=== PATIENT | female | born 1965 | race Caucasian/White ===

== ENCOUNTER 2018-01-15 21:40 | Inpatient (IN) | payer BC ==
[2018-01-15] MEDS ORDERED: Sodium Chloride 0.9% 5 ML Syringe FLUSH PRN ×2 (21:46→22:53)
[2018-01-15] MEDS ORDERED: Albuterol/Ipratropium 3.0-0.5 MG/3 ML Neb Soln NEB ONE (21:46)
[2018-01-15] MEDS ORDERED: Acetaminophen 500 MG Tab ONE (21:50)
[2018-01-15] MEDS ORDERED: Acetaminophen 500 MG Tab PO ONE (21:51)
--- NOTE | 2018-01-15 21:51 | EDM.PDOC ---
ED HPI GENERAL MEDICAL PROBLEM - General Chief Complaint: General Stated Complaint: ABDOMINAL PAIN Time Seen by Provider: 01/15/18 21:40 Source of Information: Reports: Patient, EMS History Limitations: Reports: No Limitations - History of Present Illness INITIAL COMMENTS - FREE TEXT/NARRATIVE: 52 YO WF presents to ER complaining of 4 day history of progressive shortness of breath and upper respiratory illness. Pt is O2 dependent uses 3L at home. Pt reports today she started to develop dysuria followed by abdominal pain with radiation to her back prompting call to EMS. Pt was found to have SaO2 80% on 3L. Pt was placed on NRB and transferred to ER. Pt has terminal colon/anal cancer. Pt is currently on hospice care. Pt with documented fever 101.3 tonight in ER. Pt denies any chest pain or vomiting. Onset Date: 01/12/18 Duration: Day(s): (4) Location: Reports: Generalized Severity: Mild Improves with: Reports: None Worsens with: Reports: Movement Context: Reports: Sick Contact Associated Symptoms: Reports: Diaphoresis, Fever/Chills, Shortness of Breath. Denies: Confusion, Chest Pain, Cough, cough w sputum, Headaches, Malaise, Nausea /Vomiting, Seizure, Syncope, Weakness Lower Abdomen Pain Score (Numeric/FACES): 3 - Related Data Allergies Allergy/AdvReac Type Severity Reaction Status Date / Time codeine Allergy Anaphylactic Verified 01/15/18 21:47 Shock morphine Allergy Anaphylactic Verified 01/15/18 21:47 Shock Home Meds: Home Meds Acetaminophen 2 tab PO Q4HR PRN 03/06/17 [History] Citalopram [Celexa] 1.5 tab PO DAILY 03/06/17 [History] Furosemide [Lasix] 20 mg PO DAILY 03/06/17 [History] LORazepam [Ativan] 1 tab PO QID PRN 03/06/17 [History] Lactulose 30 ml PO DAILY PRN 03/06/17 [History] Lidocaine 5% 45 g TOP QID 03/06/17 [History] Lidocaine/Prilocaine [EMLA Crm] 1 applic TOP ASDIRECTED PRN 03/06/17 [History] OLANZapine [ZyPREXA] 5 mg PO DAILY 03/06/17 [History] Ondansetron [Zofran ODT] 8 mg PO TID PRN 03/06/17 [History] buPROPion HCl [Zyban] 1 tab PO BID 03/06/17 [History] CISplatin 171 mg IV ASDIRECTED 06/10/17 [History] Dexamethasone 4 mg PO ASDIRECTED 06/10/17 [History] Fluorouracil 10,000 mg IV ASDIRECTED 06/10/17 [History] HYDROmorphone [Dilaudid] 2 mg PO Q4H PRN 06/10/17 [History] Potassium Chloride [Klor-Con M20] 20 meq PO BID 06/10/17 [History] Past Medical History Cardiovascular History: Reports: Hypertension Gastrointestinal History: Reports: Other (See Below) Other Gastrointestinal History: rectal mass Genitourinary History: Reports: Hydronephrosis [employer] History: Reports: Psychiatric History: Reports: Anxiety, Depression Hematologic History: Reports: Anemia Oncologic (Cancer) History: Reports: Other (See Below) Other Oncologic History: anal - Past Surgical History GI Surgical History: Reports: Cholecystectomy Female Surgical History: Reports: Cystoscopy Other Female Surgeries/Procedures: left stent placement and removal. Social & Family History - Family History Cardiac: Reports: CAD Respiratory: Reports: Sleep Apnea Oncologic: Reports: Thyroid ED ROS GENERAL - Review of Systems Review Of Systems: See Below Constitutional: Reports: Fever, Chills, Fatigue, Decreased Appetite HEENT: Reports: Rhinitis Respiratory: Reports: Shortness of Breath, Wheezing Cardiovascular: Reports: No Symptoms Endocrine: Reports: No Symptoms GI/Abdominal: Reports: Abdominal Pain : Reports: Dysuria, Flank Pain, Frequency Musculoskeletal: Reports: No Symptoms Skin: Reports: No Symptoms Neurological: Reports: No Symptoms Psychiatric: Reports: No Symptoms Hematologic/Lymphatic: Reports: No Symptoms Immunologic: Reports: No Symptoms ED EXAM, GENERAL - Physical Exam Exam: See Below Exam Limited By: No Limitations General Appearance: Alert, WD/WN, No Apparent Distress Eye Exam: Bilateral Eye: PERRL Nose: Normal Inspection, Normal Mucosa, No Blood Throat/Mouth: Normal Inspection, Normal Lips, Normal Teeth, Normal Gums, Normal Oropharynx, Normal Voice, No Airway Compromise Head: Atraumatic, Normocephalic Neck: Normal Inspection, Supple, Non-Tender, Full Range of Motion Respiratory/Chest: No Accessory Muscle Use, Chest Non-Tender, Wheezing, Accessory Muscle Use. No: Lungs Clear, Normal Breath Sounds Cardiovascular: Normal Peripheral Pulses, Regular Rate, Rhythm, No Edema, No Gallop, No JVD, No Murmur, No Rub GI/Abdominal: Normal Bowel Sounds, Soft, Non-Tender, No Organomegaly, No Distention, No Abnormal Bruit, No Mass Back Exam: CVA Tenderness (L), CVA Tenderness (R) Extremities: Normal Inspection, Normal Range of Motion, Non-Tender, Normal Capillary Refill, No Pedal Edema Neurological: Alert, Oriented, CN II-XII Intact, Normal Cognition, Normal Gait, Normal Reflexes, No Motor/Sensory Deficits Psychiatric: Normal Affect, Normal Mood Skin Exam: Warm, Dry, Intact, Normal Color, No Rash Lymphatic: No Adenopathy Course - Vital Signs Last Recorded V/S: Last Vital Signs Temp 37.9 C 01/15/18 22:20 Pulse 130 H 01/15/18 21:50 Resp 24 H 01/15/18 21:48 BP 143/87 H 01/15/18 21:48 Pulse Ox 94 L 01/15/18 21:50 - Orders/Labs/Meds Orders: Active Orders 24 hr Category Date Time Status Peripheral IV Care [RC] . DIRECTED Care 01/15/18 21:47 Active RT Aerosol Therapy [RC] ASDIRECTED Care 01/15/18 21:47 Active Chest 1V Frontal [CR] Stat Exams 01/15/18 21:46 Taken CULTURE BLOOD [BC] Stat Lab 01/15/18 21:51 Ordered CULTURE BLOOD [BC] Stat Lab 01/15/18 22:00 Received UA W/MICROSCOPIC [URIN] Stat Lab 01/15/18 22:26 Ordered UA W/MICROSCOPIC [URIN] Stat Lab 01/15/18 22:26 Ordered Piperacillin/Tazobactam [Zosyn] 4.5 gm Med 01/15/18 22:45 Ordered Sodium Chloride 0.9% [Normal Saline] 100 ml IV Q6H Sodium Chloride 0.9% [Normal Saline] 1,000 ml Med 01/15/18 21:58 Active IV .BOLUS Sodium Chloride 0.9% [Syrex Flush] Med 01/15/18 21:46 Active 5 ml FLUSH Q8HR PRN Vancomycin 1 gm Med 01/15/18 22:45 Ordered Sodium Chloride 0.9% [Normal Saline] 250 ml IV Q24H Blood Culture x2 Reflex Set [OM.PC] Stat Oth 01/15/18 21:51 Ordered Peripheral IV Insertion Adult [OM.PC] Routine Oth 01/15/18 21:46 Ordered Medication Orders Sodium Chloride (Normal Saline) 1,000 mls @ 999 mls/hr IV .BOLUS ONE Stop: 01/15/18 22:58 Piperacillin Sod/Tazobactam (Sod 4.5 gm/ Sodium Chloride) 100 mls @ 200 mls/hr IV Q6H ANGELA Vancomycin HCl 1 gm/ Sodium (Chloride) 250 mls @ 167 mls/hr IV Q24H ANGELA Sodium Chloride (Syrex Flush) 5 ml FLUSH Q8HR PRN PRN Reason: Keep Vein Open Labs: Laboratory Tests 01/15/18 01/15/18 01/15/18 Range/Units 22:00 22:00 22:26 WBC 39.8 H* D (5.0-10.0) 10^3/uL RBC 2.98 L (3.80-5.50) 10^6/uL Hgb 10.3 L D (12.0-16.0) g/dL Hct 31.2 L (37.0-47.0) % MCV 104.7 H D (82.0-92.0) fL MCH 34.7 H (27.0-31.0) pg MCHC 33.1 (32.0-36.0) g/dL RDW 18.2 H (11.5-14.5) % Plt Count 180 D (150-300) 10^3/uL MPV 7.1 L (7.4-10.4) fL Neut % (Auto) 97.0 H (50.0-70.0) % Lymph % (Auto) 2.4 L (20.0-40.0) % [place] % (Auto) 0.2 L (2.0-8.0) % Eos % (Auto) 0.4 L (1.0-3.0) % Baso % (Auto) 0.0 (0.0-1.0) % Neut # (Auto) 38.5 H (2.5-7.0) 10^3/uL Lymph # (Auto) 1.0 (1.0-4.0) 10^3/uL [place] # (Auto) 0.1 (0.1-0.8) 10^3/uL Eos # (Auto) 0.2 (0.1-0.3) 10^3/uL Baso # (Auto) 0.0 (0.0-0.1) 10^3/uL Sodium 138 (136-145) mmol/L Potassium 4.7 D (3.3-5.3) mmol/L Chloride 103 (98-115) mmol/L Carbon Dioxide 14.2 L (21.0-32.0) mmol/L BUN 82 H* D (6-25) mg/dL Creatinine 1.71 H (0.51-1.17) mg/dL Est Cr Clr Drug Dosing 36.03 mL/min Estimated GFR (MDRD) 31 mL/min Glucose 125 H (70-110) mg/dL Calcium 9.3 D (8.7-10.3) mg/dL Total Bilirubin 1.2 H (0.2-1.0) mg/dL AST 83 H (15-37) U/L ALT 149 H (12-78) U/L Alkaline Phosphatase 328 H (46-116) IU/L Total Protein 7.4 (6.4-8.2) g/dL Albumin 3.62 (3.00-4.80) g/dL Urine Color Yellow (YELLOW) Urine Appearance Clear (CLEAR) Urine pH 5.0 (5.0-9.0) Ur Specific [place] 1.020 (1.005-1.030) Urine Protein 100 H (NEGATIVE) mg/dL Urine Glucose (UA) Negative (NEGATIVE) mg/dL Urine Ketones Negative (NEGATIVE) mg/dL Urine Occult Blood Moderate H (NEGATIVE) Urine Nitrite Negative (NEGATIVE) Urine Bilirubin Negative (NEGATIVE) Urine Urobilinogen 1.0 (0.2-1.0) E.U./dL Ur Leukocyte Esterase Trace H (NEGATIVE) Meds: Medications Generic Name Dose Route Start Last Admin Trade Name Freq PRN Reason Stop Dose Admin Sodium Chloride 1,000 mls @ 999 mls/hr 01/15/18 21:58 Normal Saline IV 01/15/18 22:58 .BOLUS ONE Piperacillin Sod/Tazobactam 100 mls @ 200 mls/hr 01/15/18 22:45 Sod 4.5 gm/ Sodium Chloride IV Q6H AGNELA Vancomycin HCl 1 gm/ Sodium 250 mls @ 167 mls/hr 01/15/18 22:45 Chloride IV Q24H ANGELA Sodium Chloride 5 ml 01/15/18 21:46 Syrex Flush FLUSH Q8HR PRN Keep Vein Open Discontinued Medications Generic Name Dose Route Start Last Admin Trade Name Freq PRN Reason Stop Dose Admin Acetaminophen 1,000 mg 01/15/18 21:51 01/15/18 21:50 Tylenol Extra Strength PO 01/15/18 21:52 1,000 mg ONETIME ONE Administration Acetaminophen Confirm 01/15/18 21:50 01/15/18 22:01 Tylenol Extra Strength Administered 01/15/18 21:51 Not Given Dose 1,000 mg .ROUTE .STK-MED ONE Albuterol/Ipratropium 3 ml 01/15/18 21:46 01/15/18 21:50 Duoneb 3.0-0.5 Mg/3 Ml NEB 01/15/18 21:47 3 ml ONETIME ONE Administration - Radiology Interpretation Free Text/Narrative:: CXR- bilateral bibasilar pneumonia Departure - Departure Time of Disposition: 22:51 Disposition: Admitted As Inpatient 66 Condition: Critical Clinical Impression: Hypoxemia, Dehydration, Anal cancer Pneumonia Qualifiers: Pneumonia type: due to unspecified organism Laterality: bilateral Lung location : lower lobe of lung Qualified Code(s): J18.1 - Lobar pneumonia, unspecified organism - Discharge Information Referrals: PCP,Not In Area [Ordering Only Provider] - Forms: ED Department Discharge - My Orders Last 24 Hours: My Active Orders 01/15/18 21:46 Chest 1V Frontal [CR] Stat Sodium Chloride 0.9% [Syrex Flush] 5 ml FLUSH Q8HR PRN Peripheral IV Insertion Adult [OM.PC] Routine 01/15/18 21:47 Peripheral IV Care [RC] . DIRECTED RT Aerosol Therapy [RC] ASDIRECTED 01/15/18 21:51 CULTURE BLOOD [BC] Stat Blood Culture x2 Reflex Set [OM.PC] Stat 01/15/18 21:58 Sodium Chloride 0.9% [Normal Saline] 1,000 ml IV .BOLUS 01/15/18 22:00 CULTURE BLOOD [BC] Stat 01/15/18 22:26 UA W/MICROSCOPIC [URIN] Stat UA W/MICROSCOPIC [URIN] Stat 01/15/18 22:45 Piperacillin/Tazobactam [Zosyn] 4.5 gm Sodium Chloride 0.9% [Normal Saline] 100 ml IV Q6H Vancomycin 1 gm Sodium Chloride 0.9% [Normal Saline] 250 ml IV Q24H - Assessment/Plan Last 24 Hours: My Active Orders 01/15/18 21:46 Chest 1V Frontal [CR] Stat Sodium Chloride 0.9% [Syrex Flush] 5 ml FLUSH Q8HR PRN Peripheral IV Insertion Adult [OM.PC] Routine 01/15/18 21:47 Peripheral IV Care [RC] . DIRECTED RT Aerosol Therapy [RC] ASDIRECTED 01/15/18 21:51 CULTURE BLOOD [BC] Stat Blood Culture x2 Reflex Set [OM.PC] Stat 01/15/18 21:58 Sodium Chloride 0.9% [Normal Saline] 1,000 ml IV .BOLUS 01/15/18 22:00 CULTURE BLOOD [BC] Stat 01/15/18 22:26 UA W/MICROSCOPIC [URIN] Stat UA W/MICROSCOPIC [URIN] Stat 01/15/18 22:45 Piperacillin/Tazobactam [Zosyn] 4.5 gm Sodium Chloride 0.9% [Normal Saline] 100 ml IV Q6H Vancomycin 1 gm Sodium Chloride 0.9% [Normal Saline] 250 ml IV Q24H Assessment:: 1. Hypoxemia 2. Bibasilar pneumonia 3. leukocytosis 4. anal CA with metastasis 5. revoked hospice care and is a full code at this time Plan: 1. admit- [facility] 2. zosyn/vanco 3. IVF 4. duoneb Q4 5. oxygen NRB 6. supportive care
[2018-01-15] MEDS ORDERED: Sodium Chloride 0.9% 1,000 ML IV ONE (21:58)
[2018-01-15] MEDS ORDERED: HYDROmorphone 2 MG/ML SDV IVPUSH PRN (22:53)
[2018-01-15] MEDS ORDERED: Ondansetron 4 MG/2 ML SDV IV PRN (22:53)
[2018-01-15] MEDS ORDERED: Dexamethasone 4 MG Tab PO SCH (23:15)
[2018-01-16] MEDS: Sodium Chloride 0.9% 1,000 ML IV SCH ×2 (00:28→14:36)
[2018-01-16] MEDS: Piperacillin/Tazobactam 4.5 GM in Sodium Chloride 0.9% 100 ML IV SCH ×2 (00:43→05:58)
[2018-01-16] MEDS: Albuterol/Ipratropium 3.0-0.5 MG/3 ML Neb Soln NEB PRN ×2 (01:43→08:29)
[2018-01-16] MEDS ORDERED: methylPREDNISolone Sodium Succinate 125 MG/2 ML SDV IVPUSH ONE (03:22)
[2018-01-16 04:26] LABS: O2 DELIVERY DEVICE NON REBR MASK; PCO2 ARTERIAL 52 mmHG (35-45)
[2018-01-16 04:27] LABS: BASE EXCESS ARTERIAL -7 mmol/L (-2-3); BICARBONATE,ARTERIAL 20.9 mmol/L (22-26); O2 FLOW RATE 15 L/min; O2 SATURATION ARTERIAL 90 % (95-98); PO2 ARTERIAL 70 mmHG (80-105)
[2018-01-16] MEDS: Loratadine 10 MG Tab PO SCH (08:43)
[2018-01-16] MEDS: OLANZapine 5 MG Tab PO SCH (08:43)
[2018-01-16] MEDS: Citalopram 20 MG Tab PO SCH (08:44)
[2018-01-16] MEDS: Triamcinolone Acetonide 0.1% Crm 15 GM Tube TOP SCH ×2 (08:50→21:21)
[2018-01-16 10:35] LABS: O2 DELIVERY DEVICE NASAL CANNULA
[2018-01-16 10:36] LABS: PCO2 ARTERIAL 37 mmHG (35-45)
[2018-01-16 10:38] LABS: BASE EXCESS ARTERIAL -8 mmol/L (-2-3); BICARBONATE,ARTERIAL 18.3 mmol/L (22-26); O2 FLOW RATE 10 L/min; O2 SATURATION ARTERIAL 89 % (95-98); PO2 ARTERIAL 62 mmHG (80-105)
--- NOTE | 2018-01-16 10:40 | PCM.HP ---
H&P History of Present Illness - General Date of Service: 01/16/18 Admit Problem/Dx: Admission Diagnosis/Problem Admission Diagnosis/Problem Pneumonia Source of Information: Patient, Old Records, Provider, RN History Limitations: Reports: No Limitations - History of Present Illness Initial Comments - Free Text/Narative: 52-year-old female with a history of anal cancer had come into the ED due to progressive shortness of breath, abdominal pain. He was noted in the ED for her to have SaO2 80%, fever greater >101, elevated white count. Patient does have metastatic anal cancer and was recently placed on home-hospice however he in the ED she rescinded her hospice. Lower Abdomen Pain Score (Numeric/FACES): 3 Chest Pain Score (Numeric/FACES): 5 Neck Pain Score (Numeric/FACES): 5 - Related Data Allergies/Adverse Reactions: Allergies Allergy/AdvReac Type Severity Reaction Status Date / Time codeine Allergy Anaphylactic Verified 01/15/18 21:47 Shock morphine Allergy Anaphylactic Verified 01/15/18 21:47 Shock pear Allergy Hives Verified 01/16/18 04:37 Home Medications: Home Meds Citalopram [Celexa] 40 mg PO DAILY 03/06/17 [History] LORazepam [Ativan] 1 tab PO QID PRN 03/06/17 [History] OLANZapine [ZyPREXA] 5 mg PO DAILY 03/06/17 [History] Dexamethasone 4 mg PO ASDIRECTED 06/10/17 [History] HYDROmorphone [Dilaudid] 2 mg PO Q4H PRN 06/10/17 [History] Potassium Chloride [Klor-Con M20] 20 meq PO DAILY 06/10/17 [History] Albuterol/Ipratropium [DuoNeb 3.0-0.5 MG/3 ML] 3 ml INH Q6H PRN 01/15/18 [ History] Loratadine [Claritin] 10 mg PO DAILY 01/15/18 [History] Sennosides/Docusate Sodium [Senna-Docusate Sodium] 1 each PO BID 01/15/18 [ History] guaiFENesin [Cough Syrup] 200 mg PO Q4H PRN 01/15/18 [History] Triamcinolone Acetonide [Triamcinolone Acetonide 0.1% Crm] 1 applic TOP BID 10/05 [History] Albuterol [Proventil Neb Soln] 2.5 mg NEB Q2H PRN neb 01/21/18 [Rx] Furosemide [Lasix] 20 mg PO DAILY PRN #0 01/21/18 [Rx] Nystatin [Mycostatin] 5 ml PO QID 7 Days #140 ml 01/21/18 [Rx] Ondansetron [Zofran ODT] 4 mg PO Q6H PRN #15 tab.dis 01/21/18 [Rx] Past Medical History HEENT History: Reports: Impaired Vision Cardiovascular History: Reports: Hypertension Gastrointestinal History: Reports: Other (See Below) Other Gastrointestinal History: rectal mass Genitourinary History: Reports: Hydronephrosis [employer] History: Reports: Psychiatric History: Reports: Anxiety, Depression Hematologic History: Reports: Anemia Immunologic History: Reports: Immunosuppression Oncologic (Cancer) History: Reports: Other (See Below) Other Oncologic History: anal - Infectious Disease History Infectious Disease History: Reports: None - Past Surgical History HEENT Surgical History: Reports: None Cardiovascular Surgical History: Reports: None GI Surgical History: Reports: Cholecystectomy Female Surgical History: Reports: Cystoscopy Other Female Surgeries/Procedures: left stent placement and removal. Oncologic Surgical History: Reports: None Social & Family History - Family History Cardiac: Reports: CAD Respiratory: Reports: Sleep Apnea Oncologic: Reports: Thyroid - Tobacco Use Smoking Status *Q: Current Every Day Smoker Years of Tobacco use: 40 Packs/Tins Daily: 0.5 - Caffeine Use Caffeine Use: Reports: Coffee, Soda - Recreational Drug Use Recreational Drug Use: No H&P Review of Systems - Review of Systems: Review Of Systems: See Below General: Reports: Weakness, Diaphoresis, Decreased Appetite. Denies: Fever HEENT: Reports: No Symptoms Pulmonary: Reports: Shortness of Breath, Wheezing, Cough Cardiovascular: Reports: Dyspnea on Exertion. Denies: Chest Pain, Blood Pressure Problem Gastrointestinal: Reports: Decreased Appetite. Denies: Abdominal Pain, Diarrhea , Distension, Flatus, Nausea Genitourinary: Denies: Incontinence Musculoskeletal: Reports: Back Pain Skin: Reports: No Symptoms Psychiatric: Reports: Depression, Anxiety Neurological: Reports: Weakness. Denies: Confusion Hematologic/Lymphatic: Reports: Anemia Immunologic: Reports: Other (immunocompromised) Exam - Exam Exam: See Below - Vital Signs Vital Signs: Last Vital Signs Temp 96.6 F 01/16/18 06:15 Pulse 102 H 01/16/18 06:15 Resp 20 01/16/18 06:15 BP 133/83 01/16/18 06:15 Pulse Ox 96 01/16/18 06:15 Weight: 212 lb 11.2 oz - Exam Quality Assessment: Supplemental Oxygen (bipap was stopped after about 3 hours, Now on high flow NC, ) General: Alert, Oriented, Moderate Distress HEENT: Other (5 mucous membranes). No: Mucosa Moist & Jal Lungs: Rhonchi, Wheezing Cardiovascular: Tachycardia GI/Abdominal Exam: Soft, Non-Tender. No: Distended Back Exam: No: CVA Tenderness (L), CVA Tenderness (R) Extremities: No: Pedal Edema Skin: Warm, Dry, Intact Neurological: Cranial Nerves Intact Neuro Extensive - Mental Status: Alert Psychiatric: Alert, Anxious - Patient Data Lab Results Last 24 hrs: Laboratory Results - last 24 hr 01/15/18 01/15/18 01/15/18 Range/Units 22:00 22:00 22:00 WBC 39.8 H* D (5.0-10.0) 10^3/uL RBC 2.98 L (3.80-5.50) 10^6/uL Hgb 10.3 L D (12.0-16.0) g/dL Hct 31.2 L (37.0-47.0) % MCV 104.7 H D (82.0-92.0) fL MCH 34.7 H (27.0-31.0) pg MCHC 33.1 (32.0-36.0) g/dL RDW 18.2 H (11.5-14.5) % Plt Count 180 D (150-300) 10^3/uL MPV 7.1 L (7.4-10.4) fL Neut % (Auto) 97.0 H (50.0-70.0) % Lymph % (Auto) 2.4 L (20.0-40.0) % [place] % (Auto) 0.2 L (2.0-8.0) % Eos % (Auto) 0.4 L (1.0-3.0) % Baso % (Auto) 0.0 (0.0-1.0) % Neut # (Auto) 38.5 H (2.5-7.0) 10^3/uL Lymph # (Auto) 1.0 (1.0-4.0) 10^3/uL [place] # (Auto) 0.1 (0.1-0.8) 10^3/uL Eos # (Auto) 0.2 (0.1-0.3) 10^3/uL Baso # (Auto) 0.0 (0.0-0.1) 10^3/uL ABG pH (7.35-7.45) ABG pCO2 (35-45) mmHG ABG pO2 (80-105) mmHG ABG HCO3 (22-26) mmol/L ABG Total CO2 (23-27) mmol/L ABG O2 Saturation (95-98) % ABG Base Excess (-2-3) mmol/L O2 Delivery Device Oxygen Flow Rate L/min Sodium 138 (136-145) mmol/L Potassium 4.7 D (3.3-5.3) mmol/L Chloride 103 (98-115) mmol/L Carbon Dioxide 14.2 L (21.0-32.0) mmol/L BUN 82 H* D (6-25) mg/dL Creatinine 1.71 H (0.51-1.17) mg/dL Est Cr Clr Drug Dosing 36.03 mL/min Estimated GFR (MDRD) 31 mL/min Glucose 125 H (70-110) mg/dL Lactic Acid 8.1 H (0.4-2.0) mmol/L Calcium 9.3 D (8.7-10.3) mg/dL Total Bilirubin 1.2 H (0.2-1.0) mg/dL AST 83 H (15-37) U/L ALT 149 H (12-78) U/L Alkaline Phosphatase 328 H (46-116) IU/L Total Protein 7.4 (6.4-8.2) g/dL Albumin 3.62 (3.00-4.80) g/dL Specimen Type Urine Color (YELLOW) Urine Appearance (CLEAR) Urine pH (5.0-9.0) Ur Specific [place] (1.005-1.030) Urine Protein (NEGATIVE) mg/dL Urine Glucose (UA) (NEGATIVE) mg/dL Urine Ketones (NEGATIVE) mg/dL Urine Occult Blood (NEGATIVE) Urine Nitrite (NEGATIVE) Urine Bilirubin (NEGATIVE) Urine Urobilinogen (0.2-1.0) E.U./dL Ur Leukocyte Esterase (NEGATIVE) Urine RBC /HPF Urine WBC /HPF Ur Epithelial Cells /LPF Urine Bacteria (NONE TO FEW) /HPF Urine Mucus (NEGATIVE) /LPF 01/15/18 01/16/18 01/16/18 Range/Units 22:26 04:20 07:20 WBC 31.5 H* (5.0-10.0) 10^3/uL RBC 2.73 L (3.80-5.50) 10^6/uL Hgb 9.0 L (12.0-16.0) g/dL Hct 28.5 L (37.0-47.0) % MCV 104.5 H (82.0-92.0) fL MCH 33.1 H (27.0-31.0) pg MCHC 31.7 L (32.0-36.0) g/dL RDW 17.9 H (11.5-14.5) % Plt Count 118 L (150-300) 10^3/uL MPV 7.0 L (7.4-10.4) fL Neut % (Auto) 89.7 H (50.0-70.0) % Lymph % (Auto) 9.7 L (20.0-40.0) % [place] % (Auto) 0.3 L (2.0-8.0) % Eos % (Auto) 0.2 L (1.0-3.0) % Baso % (Auto) 0.1 (0.0-1.0) % Neut # (Auto) 28.2 H (2.5-7.0) 10^3/uL Lymph # (Auto) 3.1 (1.0-4.0) 10^3/uL [place] # (Auto) 0.1 (0.1-0.8) 10^3/uL Eos # (Auto) 0.1 (0.1-0.3) 10^3/uL Baso # (Auto) 0.0 (0.0-0.1) 10^3/uL ABG pH 7.22 L* (7.35-7.45) ABG pCO2 52 H* (35-45) mmHG ABG pO2 70 L* (80-105) mmHG ABG HCO3 20.9 L (22-26) mmol/L ABG Total CO2 22 L (23-27) mmol/L ABG O2 Saturation 90 L (95-98) % ABG Base Excess -7 L (-2-3) mmol/L O2 Delivery Device Non rebr mask Oxygen Flow Rate 15 L/min Sodium (136-145) mmol/L Potassium (3.3-5.3) mmol/L Chloride (98-115) mmol/L Carbon Dioxide (21.0-32.0) mmol/L BUN (6-25) mg/dL Creatinine (0.51-1.17) mg/dL Est Cr Clr Drug Dosing mL/min Estimated GFR (MDRD) mL/min Glucose (70-110) mg/dL Lactic Acid (0.4-2.0) mmol/L Calcium (8.7-10.3) mg/dL Total Bilirubin (0.2-1.0) mg/dL AST (15-37) U/L ALT (12-78) U/L Alkaline Phosphatase (46-116) IU/L Total Protein (6.4-8.2) g/dL Albumin (3.00-4.80) g/dL Specimen Type Urinvoid Urine Color Yellow (YELLOW) Urine Appearance Clear (CLEAR) Urine pH 5.0 (5.0-9.0) Ur Specific [place] 1.020 (1.005-1.030) Urine Protein 100 H (NEGATIVE) mg/dL Urine Glucose (UA) Negative (NEGATIVE) mg/dL Urine Ketones Negative (NEGATIVE) mg/dL Urine Occult Blood Moderate H (NEGATIVE) Urine Nitrite Negative (NEGATIVE) Urine Bilirubin Negative (NEGATIVE) Urine Urobilinogen 1.0 (0.2-1.0) E.U./dL Ur Leukocyte Esterase Trace H (NEGATIVE) Urine RBC 5-10 H /HPF Urine WBC 5-10 H /HPF Ur Epithelial Cells Moderate H /LPF Urine Bacteria Moderate H (NONE TO FEW) /HPF Urine Mucus Few H (NEGATIVE) /LPF 01/16/18 01/16/18 Range/Units 07:20 07:20 WBC (5.0-10.0) 10^3/uL RBC (3.80-5.50) 10^6/uL Hgb (12.0-16.0) g/dL Hct (37.0-47.0) % MCV (82.0-92.0) fL MCH (27.0-31.0) pg MCHC (32.0-36.0) g/dL RDW (11.5-14.5) % Plt Count (150-300) 10^3/uL MPV (7.4-10.4) fL Neut % (Auto) (50.0-70.0) % Lymph % (Auto) (20.0-40.0) % [place] % (Auto) (2.0-8.0) % Eos % (Auto) (1.0-3.0) % Baso % (Auto) (0.0-1.0) % Neut # (Auto) (2.5-7.0) 10^3/uL Lymph # (Auto) (1.0-4.0) 10^3/uL [place] # (Auto) (0.1-0.8) 10^3/uL Eos # (Auto) (0.1-0.3) 10^3/uL Baso # (Auto) (0.0-0.1) 10^3/uL ABG pH (7.35-7.45) ABG pCO2 (35-45) mmHG ABG pO2 (80-105) mmHG ABG HCO3 (22-26) mmol/L ABG Total CO2 (23-27) mmol/L ABG O2 Saturation (95-98) % ABG Base Excess (-2-3) mmol/L O2 Delivery Device Oxygen Flow Rate L/min Sodium 143 (136-145) mmol/L Potassium 4.3 (3.3-5.3) mmol/L Chloride 108 (98-115) mmol/L Carbon Dioxide 21.0 (21.0-32.0) mmol/L BUN 75 H* (6-25) mg/dL Creatinine 1.49 H (0.51-1.17) mg/dL Est Cr Clr Drug Dosing 41.35 mL/min Estimated GFR (MDRD) 37 mL/min Glucose 145 H (70-110) mg/dL Lactic Acid 0.9 (0.4-2.0) mmol/L Calcium 8.4 L (8.7-10.3) mg/dL Total Bilirubin (0.2-1.0) mg/dL AST (15-37) U/L ALT (12-78) U/L Alkaline Phosphatase (46-116) IU/L Total Protein (6.4-8.2) g/dL Albumin (3.00-4.80) g/dL Specimen Type Urine Color (YELLOW) Urine Appearance (CLEAR) Urine pH (5.0-9.0) Ur Specific [place] (1.005-1.030) Urine Protein (NEGATIVE) mg/dL Urine Glucose (UA) (NEGATIVE) mg/dL Urine Ketones (NEGATIVE) mg/dL Urine Occult Blood (NEGATIVE) Urine Nitrite (NEGATIVE) Urine Bilirubin (NEGATIVE) Urine Urobilinogen (0.2-1.0) E.U./dL Ur Leukocyte Esterase (NEGATIVE) Urine RBC /HPF Urine WBC /HPF Ur Epithelial Cells /LPF Urine Bacteria (NONE TO FEW) /HPF Urine Mucus (NEGATIVE) /LPF Result Diagrams: 01/19/18 08:35 01/19/18 08:35 Problem List Initiated/Reviewed/Updated: Yes Orders Last 24hrs: Active Orders 24 hr Category Date Time Status Patient Status [ADT] Routine ADT 01/15/18 22:53 Ordered BIPAP Adult [RT BiPAP/CPAP] [RC] ASDIRECTED Care 01/16/18 04:45 Active Bedrest Bathroom Privileges [RC] DAILY Care 01/15/18 22:53 Active Oxygen Therapy [RC] DAILY Care 01/15/18 22:53 Active Pulse Oximetry [RC] CONTINUOUS Care 01/15/18 22:54 Active RT Aerosol Therapy [RC] .PRN Care 01/15/18 22:55 Active Vital Signs [RC] 0300,0700,1100,1500,1900,2300 Care 01/15/18 22:53 Active Regular Diet [DIET] Diet 01/16/18 Breakfast Active ABG [BLOOD GAS ARTERIAL] [BG] Routine Lab 01/16/18 09:20 Ordered CULTURE BLOOD [BC] Stat Lab 01/15/18 22:00 Received CULTURE BLOOD [BC] Stat Lab 01/15/18 22:30 Received CULTURE SPUTUM + SMEAR [RM] Stat Lab 01/15/18 22:53 Ordered UA W/MICROSCOPIC [URIN] Stat Lab 01/15/18 22:26 Ordered Acetaminophen [Tylenol] Med 01/15/18 22:53 Active 650 mg PO Q4H PRN Albuterol/Ipratropium [DuoNeb 3.0-0.5 MG/3 ML] Med 01/15/18 22:53 Active 3 ml NEB Q4H PRN Citalopram [Celexa] Med 01/16/18 09:00 Active 40 mg PO DAILY Docusate Sodium/Sennosides [Senna Plus] Med 01/16/18 09:00 Active 1 tab PO BID HYDROmorphone [Dilaudid] Med 01/15/18 22:53 Active 0.5 mg IVPUSH Q2H PRN LORazepam [Ativan] Med 01/15/18 23:05 Active 0.5 mg PO QID PRN Loratadine [Claritin] Med 01/16/18 09:00 Active 10 mg PO DAILY OLANZapine [ZyPREXA] Med 01/16/18 09:00 Active 5 mg PO DAILY Ondansetron [Zofran] Med 01/15/18 22:53 Active 4 mg IV Q6H PRN Piperacillin/Tazobactam [Zosyn] 4.5 gm Med 01/16/18 12:00 Active Sodium Chloride 0.9% [Normal Saline] 100 ml IV 0000,0600,1200,1800 Sodium Chloride 0.9% [Normal Saline] 1,000 ml Med 01/15/18 23:00 Active IV ASDIRECTED Sodium Chloride 0.9% [Syrex Flush] Med 01/15/18 22:53 Active 5 ml FLUSH Q8HR PRN Triamcinolone Acetonide [Triamcinolone Acetonide 0.1% Med 01/16/18 09:00 Active Crm] 1 gm TOP BID Vancomycin 1 gm Med 01/17/18 01:00 Active Sodium Chloride 0.9% [Normal Saline] 250 ml IV 0100 Blood Culture x2 Reflex Set [OM.PC] Stat Oth 01/15/18 21:51 Ordered Peripheral IV Insertion Adult [OM.PC] Routine Oth 01/15/18 21:46 Ordered Peripheral IV Insertion Adult [OM.PC] Routine Oth 01/15/18 22:53 Ordered Resuscitation Status Routine Resus Stat 01/15/18 22:53 Ordered Medication Orders Acetaminophen (Tylenol) 650 mg PO Q4H PRN PRN Reason: Pain (Mild 1-3)/fever Albuterol/Ipratropium (Duoneb 3.0-0.5 Mg/3 Ml) 3 ml NEB Q4H PRN PRN Reason: Shortness Of Breath/wheezing Last Admin: 01/16/18 08:29 Dose: 3 ml Admin: 01/16/18 01:43 Dose: 3 ml Citalopram Hydrobromide (Celexa) 40 mg PO DAILY [facility] Last Admin: 01/16/18 08:44 Dose: 40 mg Hydromorphone HCl (Dilaudid) 0.5 mg IVPUSH Q2H PRN PRN Reason: Pain (severe 7-10) Sodium Chloride (Normal Saline) 1,000 mls @ 125 mls/hr IV ASDIRECTED [facility] Last Admin: 01/16/18 00:28 Dose: 125 mls/hr Piperacillin Sod/Tazobactam (Sod 4.5 gm/ Sodium Chloride) 100 mls @ 200 mls/hr IV 0000,0600,1200,1800 [facility] Vancomycin HCl 1 gm/ Sodium (Chloride) 250 mls @ 167 mls/hr IV 0100 [facility] Loratadine (Claritin) 10 mg PO DAILY [facility] Last Admin: 01/16/18 08:43 Dose: 10 mg Lorazepam (Ativan) 0.5 mg PO QID PRN PRN Reason: Anxiety Olanzapine (Zyprexa) 5 mg PO DAILY [facility] Last Admin: 01/16/18 08:43 Dose: 5 mg Ondansetron HCl (Zofran) 4 mg IV Q6H PRN PRN Reason: Nausea/Vomiting Senna/Docusate Sodium (Senna Plus) 1 tab PO BID [facility] Last Admin: 01/16/18 08:43 Dose: 1 tab Sodium Chloride (Syrex Flush) 5 ml FLUSH Q8HR PRN PRN Reason: Keep Vein Open Triamcinolone Acetonide (Triamcinolone Acetonide 0.1% Crm) 1 gm TOP BID [facility] Last Admin: 01/16/18 08:50 Dose: Not Given Assessment/Plan Comment:: HISTORY OF PRESENT ILLNESS 52-year-old female with a history of anal cancer had come into the ED due to progressive shortness of breath, abdominal pain. He was noted in the ED for her to have SaO2 80%, fever greater >101, elevated white count. Patient does have metastatic anal cancer and was recently placed on home-hospice however he in the ED she rescinded her hospice. Oncology history Dx anal cancer in August 2016. She has been treated with chemotherapy and radiation at [facility] well as [facility]. PET scan demonstrated progressive disease with metastases to liver, lung, lymph node involvement as well as her bones. She was subsequently placed on home-hospice at that time however she has not yet made herself do not resuscitate. 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 She has 3 children - one in high school, one in college and another in work force. Pertinent ED findings White count 40,000 Neutrophilia 97% hypoxic Tachycardia Afebrile after patient was transferred from ED to floor on-call provider notified regarding shortness of breath, hypoxia requiring intervention including respiratory support with BiPAP, ABGs, further labs including lactic acid Primary problems Respiratory failure with respiratory acidosis Sepsis w/o shock Hypoxia Pneumonia Neutrophilia dehydration, EVFD urinary tract infection Immunocompromised host tobacco dependency chronic problems Primary anal CA with metastasis hypertension Depression PULMONARY: Pulmonary status has improved somewhat however labored breathing and appears fatigue, off BiPAP for now, nasal cannula high flow, POX 90% pH 7.22, PCO2 52, PaO2 70 HCO3 21, Mildly drousy Mentation, change B2/AC to scheduled, sputum culture, HOB upright, ICS, coughing/deep breathing, repeat ABG stat. Hold Narcotics. Continue Solumedrol. chest x-ray with bilateral pleural effusions and interstitial edema, reduce Zosyn to non-noscomial dosage. nicotine replacement therapy added. CV: tachycardic however hemodynamically stable, MAP adequate, HEMATOLOGY: Hgb/Hct 9.0/29, macrocytic; anisocytosis, possible intramedullary hemolysis (bili 1.2) however folate/vitamin deficiency contributable likely. we' ll work her up for this. FLUIDS, ELECTROLYTES, AND RENAL: significant dehydration, BUN 75, creatinine 1.45, elevated ratio, No FrExcrected NA, BUN/Creat ration 50:1, prerenal, voiding spontaneously, forego indwelling Le, strict I/O, Calcium 8.4, sodium 142, continue with isotonic saline at 125 mL per hour. INFECTIOUS DISEASE: sepsis without septic shock, GCS 15, likely pneumonia component, blood cultures, urine culture, lactic acid normal after hydration, qSOFA improved 1/3,(RR) MAP good, no pressors needed, BC surveillance, vancomycin, Zoysn, significant but improving neutrophilia. Droplet precautions. monitor her hemodynamic situation very closely. place in critical care here. ENDOCRINE: nondiabetic but may have to provide endogenous insulin due to high- dose steroids GI: No vomiting, Taking PO, add PPI therapy HEALTH MAINTENANCE: DVT prophylaxis mainly due to CA and now immobility, LMWH; platelets 118,000 GI stress prophylaxis, add Protonix CODE STATUS, long discussion with patient, family, patient does NOT desire intubation however will modify to include defibrillation, medication and CPR only. does have living will. Overall disposition/plan; continue in acute care status, cardiovascular and respiratory support, antibiotics, right now will continue with IV fluids however monitor continuously until nearing euvolemic state due to concerning chest x-ray. if tires out today will place back on BiPAP, repeat ABG stat, aggressive pulmonary toileting. place critical care status with telemetry, social service consultation. Hold Narcotics.
[2018-01-16] MEDS: methylPREDNISolone Sodium Succinate 125 MG/2 ML SDV IVPUSH SCH ×2 (11:38→19:53)
[2018-01-16] MEDS ORDERED: Enoxaparin 40 MG/0.4 ML Syringe SUBCUT SCH (11:45)
[2018-01-16] MEDS ORDERED: Piperacillin/Tazobactam 4.5 GM in Sodium Chloride 0.9% 100 ML IV SCH (12:00)
[2018-01-16] MEDS: Nicotine 14 MG/24 Hr Patch TRDERM SCH (12:15)
[2018-01-16] MEDS: Pantoprazole 40 MG Vial IVPUSH SCH (12:19)
[2018-01-16] MEDS: Piperacillin/Tazobactam/Dext 50 ML IV SCH ×4 (12:22→17:35)
[2018-01-16] MEDS: Albuterol/Ipratropium 3.0-0.5 MG/3 ML Neb Soln NEB SCH ×3 (12:47→21:20)
[2018-01-16] MEDS ORDERED: Triamcinolone Acetonide 0.1% Crm 15 GM Tube TOP SCH (21:00)
[2018-01-16] MEDS ORDERED: Nicotine Polacrilex 4 MG Gum CHEW PRN (21:02)
[2018-01-16] MEDS ORDERED: NICOTINE 4 MG PO SCH (21:45)
[2018-01-16] MEDS ORDERED: Nicotine Polacrilex 4 MG Gum PO PRN (21:51)
[2018-01-17] MEDS: Sodium Chloride 0.9% 1,000 ML IV SCH (00:03)
[2018-01-17] MEDS: Piperacillin/Tazobactam/Dext 50 ML IV SCH ×8 (00:04→18:23)
[2018-01-17] MEDS: Albuterol/Ipratropium 3.0-0.5 MG/3 ML Neb Soln NEB SCH ×6 (01:07→21:26)
[2018-01-17] MEDS ORDERED: EPINEPHrine 1:10,000 1 MG/10 ML Syringe IVPUSH PRN (03:58)
[2018-01-17] MEDS ORDERED: Nitroglycerin 0.4 MG Tab.SL SL PRN (03:58)
[2018-01-17] MEDS ORDERED: Lidocaine 2% 100 MG/5 ML Syringe IVPUSH PRN (03:58)
[2018-01-17] MEDS ORDERED: Atropine 0.1 MG/ML 10 ML Syringe IVPUSH PRN (03:58)
[2018-01-17] MEDS: methylPREDNISolone Sodium Succinate 125 MG/2 ML SDV IVPUSH SCH (04:39)
[2018-01-17] MEDS: Citalopram 20 MG Tab PO SCH (08:59)
[2018-01-17] MEDS: Loratadine 10 MG Tab PO SCH (09:00)
[2018-01-17] MEDS: OLANZapine 5 MG Tab PO SCH (09:01)
[2018-01-17] MEDS: LORazepam 0.5 MG Tab PO PRN ×4 (09:01→22:10)
[2018-01-17] MEDS: Triamcinolone Acetonide 0.1% Crm 15 GM Tube TOP SCH ×2 (09:02→21:26)
[2018-01-17] MEDS: Pantoprazole 40 MG Vial IVPUSH SCH (09:02)
[2018-01-17] MEDS: Nicotine 14 MG/24 Hr Patch TRDERM SCH (09:04)
[2018-01-17] MEDS ORDERED: D5 1/2 NS w/ 20 mEq/L KCl 1,000 ML IV SCH ×2 (09:45→20:25)
--- NOTE | 2018-01-17 09:57 | PCM.PN ---
- General Info Date of Service: 01/17/18 Functional Status: Reports: Pain Controlled, Tolerating Diet, Urinating, Incentive Spirometry, Other (Patient is feeling better today, less respiratory distress, no fever, improved ABG however he yoan hypoxemia. Increase in anxiety today). Denies: Ambulating - Review of Systems General: Reports: Weakness. Denies: Fever HEENT: Reports: No Symptoms Pulmonary: Reports: Shortness of Breath, Cough. Denies: Sputum, Wheezing Cardiovascular: Reports: Edema (Edema has improved generalized) Gastrointestinal: Reports: No Symptoms Genitourinary: Reports: No Symptoms Musculoskeletal: Reports: No Symptoms Skin: Reports: No Symptoms Neurological: Reports: Weakness Psychiatric: Reports: Agitation - Patient Data Vitals - Most Recent: Last Vital Signs Temp 97.0 F 01/17/18 06:51 Pulse 99 01/17/18 06:51 Resp 22 H 01/17/18 06:51 BP 142/90 H 01/17/18 06:51 Pulse Ox 90 L 01/17/18 06:51 Weight - Most Recent: 212 lb 11.2 oz I&O - Last 24 Hours: Intake & Output 01/16/18 01/17/18 01/17/18 22:59 06:59 14:59 Intake Total 1187 1376 Output Total 650 750 Balance 537 626 Lab Results Last 24 Hours: Laboratory Results - last 24 hr 01/16/18 01/16/18 01/16/18 Range/Units 07:20 07:20 07:20 WBC (5.0-10.0) 10^3/uL RBC (3.80-5.50) 10^6/uL Hgb (12.0-16.0) g/dL Hct (37.0-47.0) % MCV (82.0-92.0) fL MCH (27.0-31.0) pg MCHC (32.0-36.0) g/dL RDW (11.5-14.5) % Plt Count (150-300) 10^3/uL MPV (7.4-10.4) fL Neut % (Auto) (50.0-70.0) % Lymph % (Auto) (20.0-40.0) % Blaine % (Auto) (2.0-8.0) % Eos % (Auto) (1.0-3.0) % Baso % (Auto) (0.0-1.0) % Neut # (Auto) (2.5-7.0) 10^3/uL Lymph # (Auto) (1.0-4.0) 10^3/uL Blaine # (Auto) (0.1-0.8) 10^3/uL Eos # (Auto) (0.1-0.3) 10^3/uL Baso # (Auto) (0.0-0.1) 10^3/uL Absolute Retic (0.0200-0.1000) Percent Retic (0.3-2.2) % Haptoglobin 114 (44-215) mg/dL ABG pH (7.35-7.45) ABG pCO2 (35-45) mmHG ABG pO2 (80-105) mmHG ABG HCO3 (22-26) mmol/L ABG Total CO2 (23-27) mmol/L ABG O2 Saturation (95-98) % ABG Base Excess (-2-3) mmol/L O2 Delivery Device Oxygen Flow Rate L/min Iron (35-145) ug/dL TIBC (261-478) ug/dL Unsaturated IBC (155-355) ug/dL Transferrin % Sat (20.0-50.0) % Ferritin (11-307) ng/mL Vitamin B12 703 (180-914) pg/mL Folate 15.8 ng/mL 01/16/18 01/16/18 01/16/18 Range/Units 07:20 07:20 10:20 WBC (5.0-10.0) 10^3/uL RBC (3.80-5.50) 10^6/uL Hgb (12.0-16.0) g/dL Hct (37.0-47.0) % MCV (82.0-92.0) fL MCH (27.0-31.0) pg MCHC (32.0-36.0) g/dL RDW (11.5-14.5) % Plt Count (150-300) 10^3/uL MPV (7.4-10.4) fL Neut % (Auto) (50.0-70.0) % Lymph % (Auto) (20.0-40.0) % Blaine % (Auto) (2.0-8.0) % Eos % (Auto) (1.0-3.0) % Baso % (Auto) (0.0-1.0) % Neut # (Auto) (2.5-7.0) 10^3/uL Lymph # (Auto) (1.0-4.0) 10^3/uL Blaine # (Auto) (0.1-0.8) 10^3/uL Eos # (Auto) (0.1-0.3) 10^3/uL Baso # (Auto) (0.0-0.1) 10^3/uL Absolute Retic 0.1594 H (0.0200-0.1000) Percent Retic 5.9 H (0.3-2.2) % Haptoglobin (44-215) mg/dL ABG pH 7.31 L (7.35-7.45) ABG pCO2 37 (35-45) mmHG ABG pO2 62 L* (80-105) mmHG ABG HCO3 18.3 L (22-26) mmol/L ABG Total CO2 19 L (23-27) mmol/L ABG O2 Saturation 89 L (95-98) % ABG Base Excess -8 L (-2-3) mmol/L O2 Delivery Device Nasal cannula Oxygen Flow Rate 10 L/min Iron 238 H (35-145) ug/dL TIBC N/a H (261-478) ug/dL Unsaturated IBC <55 L (155-355) ug/dL Transferrin % Sat N/a H (20.0-50.0) % Ferritin 2592 H (11-307) ng/mL Vitamin B12 (180-914) pg/mL Folate ng/mL 01/17/18 Range/Units 08:50 WBC 24.6 H (5.0-10.0) 10^3/uL RBC 2.66 L (3.80-5.50) 10^6/uL Hgb 9.1 L (12.0-16.0) g/dL Hct 27.7 L (37.0-47.0) % MCV 104.1 H (82.0-92.0) fL MCH 34.0 H (27.0-31.0) pg MCHC 32.7 (32.0-36.0) g/dL RDW 19.3 H (11.5-14.5) % Plt Count 90 L (150-300) 10^3/uL MPV 7.7 (7.4-10.4) fL Neut % (Auto) 95.1 H (50.0-70.0) % Lymph % (Auto) 4.6 L (20.0-40.0) % Blaine % (Auto) 0.2 L (2.0-8.0) % Eos % (Auto) 0.1 L (1.0-3.0) % Baso % (Auto) 0.0 (0.0-1.0) % Neut # (Auto) 23.5 H (2.5-7.0) 10^3/uL Lymph # (Auto) 1.1 (1.0-4.0) 10^3/uL Blaine # (Auto) 0.0 L (0.1-0.8) 10^3/uL Eos # (Auto) 0.0 L (0.1-0.3) 10^3/uL Baso # (Auto) 0.0 (0.0-0.1) 10^3/uL Absolute Retic (0.0200-0.1000) Percent Retic (0.3-2.2) % Haptoglobin (44-215) mg/dL ABG pH (7.35-7.45) ABG pCO2 (35-45) mmHG ABG pO2 (80-105) mmHG ABG HCO3 (22-26) mmol/L ABG Total CO2 (23-27) mmol/L ABG O2 Saturation (95-98) % ABG Base Excess (-2-3) mmol/L O2 Delivery Device Oxygen Flow Rate L/min Iron (35-145) ug/dL TIBC (261-478) ug/dL Unsaturated IBC (155-355) ug/dL Transferrin % Sat (20.0-50.0) % Ferritin (11-307) ng/mL Vitamin B12 (180-914) pg/mL Folate ng/mL [facility]ero Results Last 24 Hours: Microbiology 01/15/18 22:25 Urine Culture - Preliminary Urine, Clean Catch NO GROWTH AFTER 1 DAY 01/15/18 22:30 Aerobic Blood Culture - Preliminary Blood - Venous - Lab Draw NO GROWTH AFTER 1 DAY Anaerobic Blood Culture - Preliminary NO GROWTH AFTER 1 DAY 01/15/18 22:00 Aerobic Blood Culture - Preliminary Blood - Venous NO GROWTH AFTER 1 DAY Anaerobic Blood Culture - Preliminary NO GROWTH AFTER 1 DAY Med Orders - Current: Current Medications Acetaminophen (Tylenol) 650 mg PO Q4H PRN PRN Reason: Pain (Mild 1-3)/fever Albuterol/Ipratropium (Duoneb 3.0-0.5 Mg/3 Ml) 3 ml NEB Q4HRRT [facility] Last Admin: 01/17/18 08:45 Dose: 3 ml Atropine Sulfate (Atropine 0.1 Mg/Ml) 0 mg IVPUSH ASDIRECTED PRN PRN Reason: Heart Citalopram Hydrobromide (Celexa) 40 mg PO DAILY [facility] Last Admin: 01/17/18 08:59 Dose: 40 mg Enoxaparin Sodium (Lovenox) 40 mg SUBCUT Q24H [facility] Last Admin: 01/16/18 12:16 Dose: 40 mg Epinephrine HCl (Epinephrine 1:10,000) 1 mg IVPUSH ASDIRECTED PRN PRN Reason: Heart Sodium Chloride (Normal Saline) 1,000 mls @ 125 mls/hr IV ASDIRECTED [facility] Last Admin: 01/17/18 00:03 Dose: 125 mls/hr Vancomycin HCl 1 gm/ Sodium (Chloride) 270 mls @ 180.367 mls/hr IV Q24H [facility] Last Admin: 01/16/18 19:38 Dose: 180.367 mls/hr Piperacillin/Tazobactam/Dextrose (Zosyn In Dextrose Iso-Osmotic 3.375 Gm) 50 mls @ 100 mls/hr IV 0000,0600,1200,1800 [facility] Last Admin: 01/17/18 05:37 Dose: 100 mls/hr Lidocaine HCl (Xylocaine 2%) 0 mg IVPUSH ASDIRECTED PRN PRN Reason: Heart Loratadine (Claritin) 10 mg PO DAILY [facility] Last Admin: 01/17/18 09:00 Dose: 10 mg Lorazepam (Ativan) 0.5 mg PO QID PRN PRN Reason: Anxiety Last Admin: 01/17/18 09:01 Dose: 0.5 mg Methylprednisolone Sodium Succinate (Solu-Medrol) 80 mg IVPUSH Q8H [facility] Last Admin: 01/17/18 04:39 Dose: 80 mg Nicotine (Habitrol) 14 mg TRDERM DAILY [facility] Last Admin: 01/17/18 09:04 Dose: Not Given Nicotine Polacrilex (Nicorelief) 4 mg PO Q2H PRN PRN Reason: Other Nitroglycerin (Nitrostat) 0.4 mg SL ASDIRECTED PRN PRN Reason: Heart Olanzapine (Zyprexa) 5 mg PO DAILY [facility] Last Admin: 01/17/18 09:01 Dose: 5 mg Ondansetron HCl (Zofran) 4 mg IV Q6H PRN PRN Reason: Nausea/Vomiting Pantoprazole Sodium (Protonix Iv) 40 mg IVPUSH DAILY [facility] Last Admin: 01/17/18 09:02 Dose: 40 mg Senna/Docusate Sodium (Senna Plus) 1 tab PO BID [facility] Last Admin: 01/17/18 09:00 Dose: 1 tab Sodium Chloride (Syrex Flush) 5 ml FLUSH Q8HR PRN PRN Reason: Keep Vein Open Triamcinolone Acetonide (Triamcinolone Acetonide 0.1% Crm) 1 gm TOP BID [facility] Last Admin: 01/17/18 09:02 Dose: Not Given Vancomycin HCl (Pharmacy To Dose - Vancomycin) 0 dose .XX ASDIRECTED [facility] Discontinued Medications Acetaminophen (Tylenol Extra Strength) 1,000 mg PO ONETIME ONE Stop: 01/15/18 21:52 Last Admin: 01/15/18 21:50 Dose: 1,000 mg Acetaminophen (Tylenol Extra Strength) Confirm Administered Dose 1,000 mg .ROUTE .STK-MED ONE Stop: 01/15/18 21:51 Last Admin: 01/15/18 22:01 Dose: Not Given Albuterol/Ipratropium (Duoneb 3.0-0.5 Mg/3 Ml) 3 ml NEB ONETIME ONE Stop: 01/15/18 21:47 Last Admin: 01/15/18 21:50 Dose: 3 ml Albuterol/Ipratropium (Duoneb 3.0-0.5 Mg/3 Ml) 3 ml NEB Q4H PRN PRN Reason: Shortness Of Breath/wheezing Last Admin: 01/16/18 08:29 Dose: 3 ml Dexamethasone (Dexamethasone) 4 mg PO ASDIRECTED [facility] Hydromorphone HCl (Dilaudid) 0.5 mg IVPUSH Q2H PRN PRN Reason: Pain (severe 7-10) Sodium Chloride (Normal Saline) 1,000 mls @ 999 mls/hr IV .BOLUS ONE Stop: 01/15/18 22:58 Last Admin: 01/15/18 23:00 Dose: 999 mls/hr Piperacillin Sod/Tazobactam (Sod 4.5 gm/ Sodium Chloride) 100 mls @ 200 mls/hr IV Q6H [facility] Last Admin: 01/16/18 05:58 Dose: 200 mls/hr Vancomycin HCl 1 gm/ Sodium (Chloride) 250 mls @ 167 mls/hr IV Q24H [facility] Last Admin: 01/16/18 01:39 Dose: 167 mls/hr Piperacillin Sod/Tazobactam (Sod 4.5 gm/ Sodium Chloride) 100 mls @ 200 mls/hr IV 0000,0600,1200,1800 [facility] Methylprednisolone Sodium Succinate (Solu-Medrol) 125 mg IVPUSH ONETIME ONE Stop: 01/16/18 03:23 Last Admin: 01/16/18 03:29 Dose: 125 mg Nicotine Polacrilex (Nicorelief) 4 mg CHEW Q4H PRN PRN Reason: Other Non-Formulary Medication (Xx Nicorette Lozenges) 4 mg PO Q2H [facility] Last Admin: 01/16/18 21:52 Dose: Not Given Sodium Chloride (Syrex Flush) 5 ml FLUSH Q8HR PRN PRN Reason: Keep Vein Open Stop: 01/16/18 00:02 - Exam Quality Assessment: Supplemental Oxygen (Off CPAP however pox 90% on 9 L nasal cannula) General: Alert, Oriented, Mild Distress Neck: Supple Lungs: Decreased Breath Sounds GI/Abdominal Exam: Soft Extremities: No: Pedal Edema Neurological: Normal Speech Psy/Mental Status: Anxious - Problem List Review Problem List Initiated/Reviewed/Updated: Yes - My Orders Last 24 Hours: My Active Orders 01/16/18 11:27 FOLATE [REF] Routine 01/16/18 11:37 Consult to Freight Loading Supervisor [CONS] Routine 01/16/18 11:41 CULTURE URINE [RM] Routine 01/16/18 11:45 Enoxaparin [Lovenox] 40 mg SUBCUT Q24H Pantoprazole [ProTONIX IV] 40 mg IVPUSH DAILY 01/16/18 12:00 Nicotine [Habitrol] 14 mg TRDERM DAILY methylPREDNISolone Sod Succ [Solu-MEDROL] 80 mg IVPUSH Q8H 01/16/18 12:15 Vancomycin Pharmacy to Dose [Pharmacy to Dose - Vancomycin] 0 dose .XX ASDIRECTED 01/16/18 12:30 Albuterol/Ipratropium [DuoNeb 3.0-0.5 MG/3 ML] 3 ml NEB Q4HRRT 01/16/18 14:00 Telemetry Monitoring [Cardiac Monitoring] [RC] 0300,0700,1100,1500,1900,2300 01/17/18 08:50 BASIC METABOLIC PANEL,BMP [CHEM] Routine 01/18/18 18:30 CREATININE W/GFR [CHEM] Routine VANCOMYCIN TROUGH [CHEM] Routine - Plan Plan:: HISTORY OF PRESENT ILLNESS 52-year-old female with a history of anal cancer had come into the ED due to progressive shortness of breath, abdominal pain. He was noted in the ED for her to have SaO2 80%, fever greater >101, elevated white count. Patient does have metastatic anal cancer and was recently placed on home-hospice however he in the ED she rescinded her hospice. Oncology history Dx anal cancer in August 2016. She has been treated with chemotherapy and radiation at [facility] as well as [facility]. PET scan demonstrated progressive disease with metastases to liver, lung, lymph node involvement as well as her bones. She was subsequently placed on home-hospice at that time however she has not yet made herself do not resuscitate. 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 She has 3 children - one in high school, one in college and another in work force. Pertinent ED findings White count 40,000 Neutrophilia 97% hypoxic Tachycardia Afebrile after patient was transferred from ED to floor on-call provider notified regarding shortness of breath, hypoxia requiring intervention including respiratory support with BiPAP, ABGs, further labs including lactic acid Primary problems Respiratory failure with respiratory acidosis Sepsis w/o shock Hypoxia Pneumonia Neutrophilia dehydration, EVFD urinary tract infection Immunocompromised host Tobacco dependency chronic problems Primary anal CA with metastasis hypertension Depression PULMONARY: Pulmonary status has improved, with improving ABG. somewhat however labored breathing and appears slightly fatigue, off BiPAP for now, nasal cannula high flow, POX 90-92% improved ABG now pH 7.31, PCO2 37, PaO2 62 HCO3 18, No longer drousy Mentation, yesterday changed B2/AC to scheduled, No sputum productin, HOB upright, ICS, coughing/deep breathing, Off Bipap. Hold Narcotics. Continue Solumedrol however can change reducing change to oral. chest x-ray with bilateral pleural effusions and interstitial edema, reduce Zosyn to non- noscomial dosage. Increase nicotine replacement therapy. CV: Slightly tachycardic however hemodynamically stable, MAP adequate, HEMATOLOGY: Hgb/Hct 9.0/29, macrocytic; anisocytosis, possible intramedullary hemolysis (bili 1.2) ferritin well above acute phase reactant threshold, likely not ARY. With her CA one would suggest ACD however macrocytic picture and her folate and vitamin B-12 are good. We'll forego any treatment FLUIDS, ELECTROLYTES, AND RENAL: significant dehydration on admission however improving renal indices and overall clinical picture, will decrease her IV fluid rate today. elevated BUN/creatinine ratio however improving, No FrExcrected NA, prerenal, voiding spontaneously, strict I/O, Calcium 8.6, sodium 144, change to maintenance D5 and a half normal 20 K at 62 mL per hour INFECTIOUS DISEASE: sepsis without septic shock, GCS 15, likely pneumonia component, blood cultures, urine culture, lactic acid normal after hydration, qSOFA improved 1/3,(RR) MAP good, no pressors needed, BC surveillance, vancomycin, Zoysn, significant but improving neutrophilia. Droplet precautions. monitor her hemodynamic situation very closely. ENDOCRINE: nondiabetic but may have to provide exogenous insulin due to high- dose steroids GI: No vomiting, Taking PO, add PPI therapy HEALTH MAINTENANCE: DVT prophylaxis mainly due to CA, stop LMWH; platelets 90,000 today GI stress prophylaxis, add Protonix CODE STATUS, long discussion with patient, family, patient does NOT desire intubation however will modify to include defibrillation, medication and CPR only. does have living will. Overall disposition/plan; continue in acute care status, discontinue Lovenox due to decreasing platelets, add SCD and teds, Removed from telemetry, reduce and change steroids to PO, change to maintenance fluids with KCl supplementation , increase nicotine replacement therapy, treat her anxiety today, Cont IV antibiotics. Repeat chest x-ray and labs in a.m. Continue holding narcotics. social service consultation
[2018-01-17] MEDS: Nicotine 21 MG/24 Hr Patch TRDERM SCH (10:02)
[2018-01-17] MEDS: predniSONE 20 MG Tab PO SCH ×2 (13:00→18:23)
[2018-01-18] MEDS: Piperacillin/Tazobactam/Dext 50 ML IV SCH ×10 (00:46→23:39)
[2018-01-18] MEDS: Albuterol/Ipratropium 3.0-0.5 MG/3 ML Neb Soln NEB SCH ×6 (00:49→21:30)
[2018-01-18] MEDS: LORazepam 0.5 MG Tab PO PRN (01:58)
[2018-01-18] MEDS: OLANZapine 5 MG Tab PO SCH (09:14)
[2018-01-18] MEDS: Loratadine 10 MG Tab PO SCH (09:14)
[2018-01-18] MEDS: Citalopram 20 MG Tab PO SCH (09:15)
[2018-01-18] MEDS: Pantoprazole 40 MG Vial IVPUSH SCH (09:15)
[2018-01-18] MEDS: Nicotine 21 MG/24 Hr Patch TRDERM SCH (09:16)
[2018-01-18] MEDS: Triamcinolone Acetonide 0.1% Crm 15 GM Tube TOP SCH ×2 (09:16→21:29)
--- NOTE | 2018-01-18 09:47 | PCM.PN ---
- General Info Date of Service: 01/18/18 Functional Status: Reports: Urinating, New Symptoms, Other (Decreased mentation , or shortness of breath, hallucinations today. ). Denies: Tolerating Diet, Ambulating - Review of Systems General: Denies: Fever Pulmonary: Reports: Shortness of Breath. Denies: Cough, Sputum Cardiovascular: Reports: Edema Gastrointestinal: Reports: Constipation (No BM 2-3 days) Genitourinary: Reports: No Symptoms Neurological: Reports: Confusion Psychiatric: Reports: Confusion, Hallucinations (Some visual hallucinations this morning) - Patient Data Vitals - Most Recent: Last Vital Signs Temp 97.4 F 01/18/18 07:00 Pulse 104 H 01/18/18 07:00 Resp 24 H 01/18/18 07:00 BP 145/95 H 01/18/18 07:00 Pulse Ox 90 L 01/18/18 07:00 Weight - Most Recent: 218 lb 6 oz I&O - Last 24 Hours: Intake & Output 01/17/18 01/18/18 01/18/18 22:59 06:59 14:59 Intake Total 979 987 Output Total 300 450 Balance 679 537 Lab Results Last 24 Hours: Laboratory Results - last 24 hr 01/18/18 Range/Units 07:20 WBC 27.0 H (5.0-10.0) 10^3/uL RBC 2.69 L (3.80-5.50) 10^6/uL Hgb 9.3 L (12.0-16.0) g/dL Hct 28.3 L (37.0-47.0) % MCV 105.0 H (82.0-92.0) fL MCH 34.6 H (27.0-31.0) pg MCHC 33.0 (32.0-36.0) g/dL RDW 18.1 H (11.5-14.5) % Plt Count 69 L (150-300) 10^3/uL MPV 7.5 (7.4-10.4) fL Neut % (Auto) 96.3 H (50.0-70.0) % Lymph % (Auto) 2.2 L (20.0-40.0) % Marion % (Auto) 1.4 L (2.0-8.0) % Eos % (Auto) 0.1 L (1.0-3.0) % Baso % (Auto) 0.0 (0.0-1.0) % Neut # (Auto) 26.0 H (2.5-7.0) 10^3/uL Lymph # (Auto) 0.6 L (1.0-4.0) 10^3/uL Marion # (Auto) 0.4 (0.1-0.8) 10^3/uL Eos # (Auto) 0.0 L (0.1-0.3) 10^3/uL Baso # (Auto) 0.0 (0.0-0.1) 10^3/uL Homero Results Last 24 Hours: Microbiology 01/15/18 22:25 Urine Culture - Final Urine, Clean Catch MIXED TOM SUGGESTIVE OF CONTAMINATION. 01/15/18 22:30 Aerobic Blood Culture - Preliminary Blood - Venous - Lab Draw NO GROWTH AFTER 2 DAYS Anaerobic Blood Culture - Preliminary NO GROWTH AFTER 2 DAYS 01/15/18 22:00 Aerobic Blood Culture - Preliminary Blood - Venous NO GROWTH AFTER 2 DAYS Anaerobic Blood Culture - Preliminary NO GROWTH AFTER 2 DAYS Med Orders - Current: Current Medications Acetaminophen (Tylenol) 650 mg PO Q4H PRN PRN Reason: Pain (Mild 1-3)/fever Albuterol/Ipratropium (Duoneb 3.0-0.5 Mg/3 Ml) 3 ml NEB Q4HRRT [facility] Last Admin: 01/18/18 05:08 Dose: 3 ml Citalopram Hydrobromide (Celexa) 40 mg PO DAILY [facility] Last Admin: 01/18/18 09:15 Dose: 40 mg Vancomycin HCl 1 gm/ Sodium (Chloride) 270 mls @ 180.367 mls/hr IV Q24H [facility] Last Admin: 01/17/18 19:49 Dose: 180.367 mls/hr Piperacillin/Tazobactam/Dextrose (Zosyn In Dextrose Iso-Osmotic 3.375 Gm) 50 mls @ 100 mls/hr IV 0000,0600,1200,1800 [facility] Last Admin: 01/18/18 05:46 Dose: 100 mls/hr Potassium Chloride/Dextrose/Sod Cl (D5 1/2 Ns W/ 20 Meq/L Kcl) 1,000 mls @ 75 mls/hr IV ASDIRECTED [facility] Last Admin: 01/18/18 04:58 Dose: 75 mls/hr Loratadine (Claritin) 10 mg PO DAILY [facility] Last Admin: 01/18/18 09:14 Dose: 10 mg Lorazepam (Ativan) 0.5 mg PO QID PRN PRN Reason: Anxiety Last Admin: 01/18/18 01:58 Dose: 0.5 mg Nicotine (Habitrol) 21 mg TRDERM DAILY [facility] Last Admin: 01/18/18 09:16 Dose: 21 mg Nicotine Polacrilex (Nicorelief) 4 mg PO Q2H PRN PRN Reason: Other Last Admin: 01/17/18 10:10 Dose: 4 mg Olanzapine (Zyprexa) 5 mg PO DAILY [facility] Last Admin: 01/18/18 09:14 Dose: 5 mg Ondansetron HCl (Zofran) 4 mg IV Q6H PRN PRN Reason: Nausea/Vomiting Pantoprazole Sodium (Protonix Iv) 40 mg IVPUSH DAILY [facility] Last Admin: 01/18/18 09:15 Dose: 40 mg Prednisone (Prednisone) 40 mg PO 1200 [facility] Last Admin: 01/17/18 13:00 Dose: 40 mg Prednisone (Prednisone) 40 mg PO 1800 [facility] Last Admin: 01/17/18 18:23 Dose: 40 mg Senna/Docusate Sodium (Senna Plus) 1 tab PO BID [facility] Last Admin: 01/17/18 21:36 Dose: 1 tab Sodium Chloride (Syrex Flush) 5 ml FLUSH Q8HR PRN PRN Reason: Keep Vein Open Triamcinolone Acetonide (Triamcinolone Acetonide 0.1% Crm) 1 gm TOP BID [facility] Last Admin: 01/18/18 09:16 Dose: Not Given Vancomycin HCl (Pharmacy To Dose - Vancomycin) 0 dose .XX ASDIRECTED [facility] Discontinued Medications Acetaminophen (Tylenol Extra Strength) 1,000 mg PO ONETIME ONE Stop: 01/15/18 21:52 Last Admin: 01/15/18 21:50 Dose: 1,000 mg Acetaminophen (Tylenol Extra Strength) Confirm Administered Dose 1,000 mg .ROUTE .STK-MED ONE Stop: 01/15/18 21:51 Last Admin: 01/15/18 22:01 Dose: Not Given Albuterol/Ipratropium (Duoneb 3.0-0.5 Mg/3 Ml) 3 ml NEB ONETIME ONE Stop: 01/15/18 21:47 Last Admin: 01/15/18 21:50 Dose: 3 ml Albuterol/Ipratropium (Duoneb 3.0-0.5 Mg/3 Ml) 3 ml NEB Q4H PRN PRN Reason: Shortness Of Breath/wheezing Last Admin: 01/16/18 08:29 Dose: 3 ml Atropine Sulfate (Atropine 0.1 Mg/Ml) 0 mg IVPUSH ASDIRECTED PRN PRN Reason: Heart Dexamethasone (Dexamethasone) 4 mg PO ASDIRECTED [facility] Enoxaparin Sodium (Lovenox) 40 mg SUBCUT Q24H [facility] Last Admin: 01/16/18 12:16 Dose: 40 mg Epinephrine HCl (Epinephrine 1:10,000) 1 mg IVPUSH ASDIRECTED PRN PRN Reason: Heart Hydromorphone HCl (Dilaudid) 0.5 mg IVPUSH Q2H PRN PRN Reason: Pain (severe 7-10) Sodium Chloride (Normal Saline) 1,000 mls @ 999 mls/hr IV .BOLUS ONE Stop: 01/15/18 22:58 Last Admin: 01/15/18 23:00 Dose: 999 mls/hr Piperacillin Sod/Tazobactam (Sod 4.5 gm/ Sodium Chloride) 100 mls @ 200 mls/hr IV Q6H [facility] Last Admin: 01/16/18 05:58 Dose: 200 mls/hr Vancomycin HCl 1 gm/ Sodium (Chloride) 250 mls @ 167 mls/hr IV Q24H [facility] Last Admin: 01/16/18 01:39 Dose: 167 mls/hr Sodium Chloride (Normal Saline) 1,000 mls @ 125 mls/hr IV ASDIRECTED [facility] Last Admin: 01/17/18 00:03 Dose: 125 mls/hr Piperacillin Sod/Tazobactam (Sod 4.5 gm/ Sodium Chloride) 100 mls @ 200 mls/hr IV 0000,0600,1200,1800 [facility] Potassium Chloride/Dextrose/Sod Cl (D5 1/2 Ns W/ 20 Meq/L Kcl) 1,000 mls @ 62 mls/hr IV ASDIRECTED [facility] Last Admin: 01/17/18 10:05 Dose: 62 mls/hr Lidocaine HCl (Xylocaine 2%) 0 mg IVPUSH ASDIRECTED PRN PRN Reason: Heart Methylprednisolone Sodium Succinate (Solu-Medrol) 125 mg IVPUSH ONETIME ONE Stop: 01/16/18 03:23 Last Admin: 01/16/18 03:29 Dose: 125 mg Methylprednisolone Sodium Succinate (Solu-Medrol) 80 mg IVPUSH Q8H [facility] Last Admin: 01/17/18 04:39 Dose: 80 mg Nicotine (Habitrol) 14 mg TRDERM DAILY [facility] Last Admin: 01/17/18 09:04 Dose: Not Given Nicotine Polacrilex (Nicorelief) 4 mg CHEW Q4H PRN PRN Reason: Other Nitroglycerin (Nitrostat) 0.4 mg SL ASDIRECTED PRN PRN Reason: Heart Non-Formulary Medication (Xx Nicorette Lozenges) 4 mg PO Q2H [facility] Last Admin: 01/16/18 21:52 Dose: Not Given Sodium Chloride (Syrex Flush) 5 ml FLUSH Q8HR PRN PRN Reason: Keep Vein Open Stop: 01/16/18 00:02 - Exam Quality Assessment: Supplemental Oxygen General: Moderate Distress, Sedated. No: Alert Neck: JVD Lungs: Decreased Breath Sounds, Wheezing Cardiovascular: Tachycardia Back Exam: No: CVA Tenderness (R) Extremities: Other (Generalize edema in arms and legs) Peripheral Pulses: 2+: Radial (L), Radial (R) Neurological: Normal Tone, Sensation Intact Psy/Mental Status: Hallucinations - Problem List Review Problem List Initiated/Reviewed/Updated: Yes - My Orders Last 24 Hours: My Active Orders 01/17/18 09:27 Nicotine [Habitrol] 21 mg TRDERM DAILY 01/17/18 09:55 Sequential Compression Device [OM.PC] Routine LIOR Hose [Antiembolic Hose] [OM.PC] Routine 01/17/18 12:00 predniSONE 40 mg PO 1200 01/17/18 18:00 predniSONE 40 mg PO 1800 01/18/18 05:11 CXR [Chest 2V] [CR] AM 01/18/18 06:41 Oxygen Therapy [RC] ASDIRECTED 01/18/18 09:15 ABG [BLOOD GAS ARTERIAL] [BG] Routine 01/18/18 18:30 CREATININE W/GFR [CHEM] Routine VANCOMYCIN TROUGH [CHEM] Routine - Plan Plan:: HISTORY OF PRESENT ILLNESS 52-year-old female with a history of anal cancer had come into the ED due to progressive shortness of breath, abdominal pain. He was noted in the ED for her to have SaO2 80%, fever greater >101, elevated white count. Patient does have metastatic anal cancer and was recently placed on home-hospice however he in the ED she rescinded her hospice. Oncology history Dx anal cancer in August 2016. She has been treated with chemotherapy and radiation at [facility] as well as [facility]. PET scan demonstrated progressive disease with metastases to liver, lung, lymph node involvement as well as her bones. She was subsequently placed on home-hospice at that time however she has not yet made herself do not resuscitate. 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 She has 3 children - one in high school, one in college and another in work force. Pertinent ED findings White count 40,000 Neutrophilia 97% hypoxic Tachycardia Afebrile Update this morning during rounds, nurses reporting visual hallucinations, lab unable to obtain stat ABG, or any other labs, fluids were increased from 62-75 mL per hour due to creatinine ratio. Repeat chest x-ray significant bibasilar infiltrates however some clearing. Blood pressure 145/95, tachycardia, pulse oximetry 90%. Decreased mentation. Nurses reported patient "snuck" out hospital last night for cigarette. Primary problems Psychosis versus delirium secondary, visual hallucinations Respiratory failure with respiratory acidosis Sepsis w/o shock Hypoxia Pneumonia Constipation Neutrophilia urinary tract infection Immunocompromised host Tobacco dependency chronic problems Primary anal CA with metastasis hypertension Depression PULMONARY: Pulmonary status is slightly worsened, unable to obtain ABG, will place back on BiPAP. Hallucinations, likely secondary psychosis. somewhat however labored breathing and appears slightly fatigue, POX 90% today she showed improved ABG pH 7.31, PCO2 37, PaO2 62 HCO3 18, she had no altered mental status changes with B2/AC scheduled, No sputum production, HOB upright, Hold Narcotics and alprazolam. Continue Solumedrol however can change reducing change to oral. Repeat chest x-ray shows significant bibasilar infiltrates however some evidence of clearing. Zosyn to non-noscomial dosage. nicotine replacement therapy. CV: Slightly tachycardic however hemodynamically stable, MAP adequate, slight JVD HEMATOLOGY: Hgb/Hct 9.0/29, macrocytic; anisocytosis, possible intramedullary hemolysis (bili 1.2) ferritin well above acute phase reactant threshold, likely not ARY. With her CA one would suggest ACD however macrocytic picture and her folate and vitamin B-12 are good. We'll forego any treatment FLUIDS, ELECTROLYTES, AND RENAL: significant dehydration on admission however appears slightly edematous with slight JVD. Saline lock fluids for now. One- time Lasix. Reattempts for labs. Weight up 5 pounds. strict I/O, Calcium 8.6, sodium 144, INFECTIOUS DISEASE: sepsis without septic shock, decreased mentation, likely pneumonia component, blood cultures, urine culture, lactic acid normal after hydration, qSOFA improved 2/3,(RR) MAP good, no pressors needed, BC surveillance no growth after 2 days. Urine culture mixed tom contamination. Repeat chest x-ray infiltrates demonstrated by basilar infiltrates however improved slightly. Continue with vancomycin, Zoysn, Droplet precautions. monitor her hemodynamic situation very closely. ENDOCRINE: nondiabetic but may have to provide exogenous insulin due to high- dose steroids GI: No vomiting, Taking PO, add PPI therapy HEALTH MAINTENANCE: DVT prophylaxis mainly due to CA, stop LMWH; platelets 90,000 GI stress prophylaxis, add Protonix CODE STATUS, long discussion with patient, family, patient does NOT desire intubation however will modify to include defibrillation, medication and CPR only. does have living will. Overall disposition/plan; continue in acute care status, patient altered mental status today with hallucinations likely secondary psychosis, or delirium we'll have to monitor this very carefully. hold narcotics and alprazolam, Lasix 1 today, saline lock fluids, placed back on BiPAP, reattempt ABG and labs, continue antibiotics, discuss with family possible transfer if BiPAP fails.
[2018-01-18] MEDS ORDERED: Sodium Chloride 0.9% 5 ML Syringe FLUSH PRN (09:58)
[2018-01-18] MEDS ORDERED: Furosemide 40 MG/4 ML VIAL IVPUSH ONE (10:05)
[2018-01-18 11:17] LABS: BASE EXCESS ARTERIAL -6 mmol/L (-2-3); BICARBONATE,ARTERIAL 19.2 mmol/L (22-26); O2 SATURATION ARTERIAL 93 % (95-98); PCO2 ARTERIAL 35 mmHG (35-45)
[2018-01-18 11:19] LABS: PO2 ARTERIAL 68 mmHG (80-105)
[2018-01-18 12:00] LABS: O2 FLOW RATE 5 L/min
[2018-01-18] MEDS ORDERED: Sodium Chloride 0.9% 250 ML ONE (13:04)
[2018-01-18] MEDS: predniSONE 20 MG Tab PO SCH ×2 (13:17→18:02)
[2018-01-18] MEDS ORDERED: Sodium Chloride 0.9% 250 ML IV SCH (18:00)
[2018-01-19] MEDS: Albuterol/Ipratropium 3.0-0.5 MG/3 ML Neb Soln NEB SCH ×6 (00:15→22:31)
[2018-01-19] MEDS: Acetaminophen 325 MG Tab PO PRN (02:33)
[2018-01-19] MEDS ORDERED: ALPRAZolam 0.25 MG Tab PO ONE (02:43)
[2018-01-19] MEDS: Piperacillin/Tazobactam/Dext 50 ML IV SCH ×8 (05:51→23:22)
[2018-01-19] MEDS ORDERED: predniSONE 20 MG Tab PO SCH (08:00)
[2018-01-19] MEDS: Loratadine 10 MG Tab PO SCH (08:27)
[2018-01-19] MEDS: Citalopram 20 MG Tab PO SCH (08:27)
[2018-01-19] MEDS: Nicotine 21 MG/24 Hr Patch TRDERM SCH (08:27)
[2018-01-19] MEDS: OLANZapine 5 MG Tab PO SCH (08:32)
[2018-01-19] MEDS: Pantoprazole 40 MG Vial IVPUSH SCH (09:04)
[2018-01-19] MEDS ORDERED: Furosemide 40 MG/4 ML VIAL IVPUSH ONE (10:09)
[2018-01-19] MEDS: Triamcinolone Acetonide 0.1% Crm 15 GM Tube TOP SCH (11:18)
[2018-01-19] MEDS ORDERED: Triamcinolone Acetonide 0.1% Crm 15 GM Tube TOP PRN (12:00)
[2018-01-19] MEDS ORDERED: NICOTINE POLACRILEX 2 MG PO PRN (13:15)
--- NOTE | 2018-01-19 15:28 | PCM.PN ---
- General Info Date of Service: 01/19/18 Admission Dx/Problem (Free Text): Admission Diagnosis/Problem Admission Diagnosis/Problem Pneumonia Subjective Update: Ms. Wheeler reports feeling about 50% improved from yesterday and that her breathing is doing much better. Cough has mostly resolved. Ongoing shortness of breath, but reports this at her baseline. She continues to feel "wired" and unable to sleep. Also reports feeling puffy in her face and legs. She requests discharge back home [place] and desires going back on hospice at that time. Sister and friend at bedside today agree that she is doing much better. Functional Status: Reports: Pain Controlled, Tolerating Diet - Review of Systems General: Denies: Fever Pulmonary: Reports: Shortness of Breath. Denies: Pleuritic Chest Pain, Cough, Sputum, Wheezing Cardiovascular: Reports: Dyspnea on Exertion. Denies: Chest Pain Gastrointestinal: Denies: Constipation (resolved with soft BM this AM) Neurological: Denies: Headache, Syncope Psychiatric: Reports: Confusion, Hallucinations (improved in last 24hrs), Other (insomnia) - Patient Data Vitals - Most Recent: Last Vital Signs Temp 36.4 C 01/19/18 07:00 Pulse 108 H 01/19/18 10:44 Resp 24 H 01/19/18 07:00 BP 140/92 H 01/19/18 07:00 Pulse Ox 89 L 01/19/18 10:44 Weight - Most Recent: 99.053 kg I&O - Last 24 Hours: Intake & Output 01/19/18 01/19/18 01/19/18 06:59 14:59 22:59 Intake Total 400 Balance 400 Lab Results Last 24 Hours: Laboratory Results - last 24 hr 01/19/18 01/19/18 01/19/18 Range/Units 08:35 08:35 08:35 WBC 27.1 H (5.0-10.0) 10^3/uL RBC 2.77 L (3.80-5.50) 10^6/uL Hgb 9.5 L (12.0-16.0) g/dL Hct 29.1 L (37.0-47.0) % MCV 104.8 H (82.0-92.0) fL MCH 34.4 H (27.0-31.0) pg MCHC 32.8 (32.0-36.0) g/dL RDW 20.4 H (11.5-14.5) % Plt Count 72 L (150-300) 10^3/uL MPV 7.6 (7.4-10.4) fL Neut % (Auto) 95.5 H (50.0-70.0) % Lymph % (Auto) 3.1 L (20.0-40.0) % [place] % (Auto) 1.4 L (2.0-8.0) % Eos % (Auto) 0.0 L (1.0-3.0) % Baso % (Auto) 0.0 (0.0-1.0) % Neut # (Auto) 25.9 H (2.5-7.0) 10^3/uL Lymph # (Auto) 0.8 L (1.0-4.0) 10^3/uL [place] # (Auto) 0.4 (0.1-0.8) 10^3/uL Eos # (Auto) 0.0 L (0.1-0.3) 10^3/uL Baso # (Auto) 0.0 (0.0-0.1) 10^3/uL Sodium Cancelled 147 H Potassium Cancelled 3.3 Chloride Cancelled 107 Carbon Dioxide Cancelled 23.4 BUN Cancelled 54 H* Creatinine Cancelled 1.56 H Est Cr Clr Drug Dosing Cancelled 39.49 Estimated GFR (MDRD) Cancelled 35 Glucose Cancelled 213 H Calcium Cancelled 8.8 Total Bilirubin 0.9 (0.2-1.0) mg/dL AST 53 H (15-37) U/L ALT 144 H (12-78) U/L Alkaline Phosphatase 226 H (46-116) IU/L Total Protein 6.5 (6.4-8.2) g/dL Albumin 3.18 (3.00-4.80) g/dL Homero Results Last 24 Hours: Microbiology 01/15/18 22:30 Aerobic Blood Culture - Preliminary Blood - Venous - Lab Draw NO GROWTH AFTER 3 DAYS Anaerobic Blood Culture - Preliminary NO GROWTH AFTER 3 DAYS 01/15/18 22:00 Aerobic Blood Culture - Preliminary Blood - Venous NO GROWTH AFTER 3 DAYS Anaerobic Blood Culture - Preliminary NO GROWTH AFTER 3 DAYS Med Orders - Current: Current Medications Acetaminophen (Tylenol) 650 mg PO Q4H PRN PRN Reason: Pain (Mild 1-3)/fever Last Admin: 01/19/18 02:33 Dose: 650 mg Albuterol (Proventil Neb Soln) 2.5 mg NEB Q4HRRT PRN PRN Reason: Wheezing Albuterol/Ipratropium (Duoneb 3.0-0.5 Mg/3 Ml) 3 ml NEB Q6HRRT [facility] Last Admin: 01/19/18 10:44 Dose: 3 ml Citalopram Hydrobromide (Celexa) 40 mg PO DAILY [facility] Last Admin: 01/19/18 08:27 Dose: 40 mg Piperacillin/Tazobactam/Dextrose (Zosyn In Dextrose Iso-Osmotic 3.375 Gm) 50 mls @ 100 mls/hr IV 0000,0600,1200,1800 [facility] Last Admin: 01/19/18 11:11 Dose: 100 mls/hr Loratadine (Claritin) 10 mg PO DAILY [facility] Last Admin: 01/19/18 08:27 Dose: 10 mg Lorazepam (Ativan) 0.5 mg PO QID PRN PRN Reason: Anxiety Last Admin: 01/18/18 01:58 Dose: 0.5 mg Melatonin (Melatonin) 3 mg PO BEDTIME [facility] Nicotine (Habitrol) 21 mg TRDERM DAILY [facility] Last Admin: 01/19/18 08:27 Dose: 21 mg Nf: Nicotine Polacrilex 2 Mg Lozenges 1 each PO Q2H PRN PRN Reason: Other Olanzapine (Zyprexa) 5 mg PO DAILY [facility] Last Admin: 01/19/18 08:32 Dose: 5 mg Ondansetron HCl (Zofran) 4 mg IV Q6H PRN PRN Reason: Nausea/Vomiting Pantoprazole Sodium (Protonix) 40 mg PO ONETIME ONE Stop: 01/20/18 07:01 Prednisone (Prednisone) 40 mg PO WITHBREAKFAST [facility] Senna/Docusate Sodium (Senna Plus) 1 tab PO BID [facility] Last Admin: 01/19/18 08:30 Dose: 1 tab Sodium Chloride (Syrex Flush) 5 ml FLUSH Q8HR PRN PRN Reason: Keep Vein Open Last Admin: 01/19/18 12:00 Dose: 5 ml Triamcinolone Acetonide (Triamcinolone Acetonide 0.1% Crm) 1 gm TOP BID PRN PRN Reason: contact dermatitis Discontinued Medications Acetaminophen (Tylenol Extra Strength) 1,000 mg PO ONETIME ONE Stop: 01/15/18 21:52 Last Admin: 01/15/18 21:50 Dose: 1,000 mg Acetaminophen (Tylenol Extra Strength) Confirm Administered Dose 1,000 mg .ROUTE .STK-MED ONE Stop: 01/15/18 21:51 Last Admin: 01/15/18 22:01 Dose: Not Given Albuterol/Ipratropium (Duoneb 3.0-0.5 Mg/3 Ml) 3 ml NEB ONETIME ONE Stop: 01/15/18 21:47 Last Admin: 01/15/18 21:50 Dose: 3 ml Albuterol/Ipratropium (Duoneb 3.0-0.5 Mg/3 Ml) 3 ml NEB Q4H PRN PRN Reason: Shortness Of Breath/wheezing Last Admin: 01/16/18 08:29 Dose: 3 ml Albuterol/Ipratropium (Duoneb 3.0-0.5 Mg/3 Ml) 3 ml NEB Q4HRRT [facility] Last Admin: 01/19/18 09:42 Dose: Not Given Alprazolam (Xanax) 0.25 mg PO ONETIME ONE Stop: 01/19/18 02:44 Last Admin: 01/19/18 02:46 Dose: 0.25 mg Atropine Sulfate (Atropine 0.1 Mg/Ml) 0 mg IVPUSH ASDIRECTED PRN PRN Reason: Heart Dexamethasone (Dexamethasone) 4 mg PO ASDIRECTED ANGELA Enoxaparin Sodium (Lovenox) 40 mg SUBCUT Q24H [facility] Last Admin: 01/16/18 12:16 Dose: 40 mg Epinephrine HCl (Epinephrine 1:10,000) 1 mg IVPUSH ASDIRECTED PRN PRN Reason: Heart Furosemide (Lasix) 20 mg IVPUSH NOW ONE Stop: 01/18/18 10:06 Last Admin: 01/18/18 10:37 Dose: 20 mg Furosemide (Lasix) 20 mg IVPUSH NOW ONE Stop: 01/19/18 10:10 Last Admin: 01/19/18 11:02 Dose: 20 mg Hydromorphone HCl (Dilaudid) 0.5 mg IVPUSH Q2H PRN PRN Reason: Pain (severe 7-10) Sodium Chloride (Normal Saline) 1,000 mls @ 999 mls/hr IV .BOLUS ONE Stop: 01/15/18 22:58 Last Admin: 01/15/18 23:00 Dose: 999 mls/hr Piperacillin Sod/Tazobactam (Sod 4.5 gm/ Sodium Chloride) 100 mls @ 200 mls/hr IV Q6H [facility] Last Admin: 01/16/18 05:58 Dose: 200 mls/hr Vancomycin HCl 1 gm/ Sodium (Chloride) 250 mls @ 167 mls/hr IV Q24H [facility] Last Admin: 01/16/18 01:39 Dose: 167 mls/hr Sodium Chloride (Normal Saline) 1,000 mls @ 125 mls/hr IV ASDIRECTED [facility] Last Admin: 01/17/18 00:03 Dose: 125 mls/hr Piperacillin Sod/Tazobactam (Sod 4.5 gm/ Sodium Chloride) 100 mls @ 200 mls/hr IV 0000,0600,1200,1800 [facility] Vancomycin HCl 1 gm/ Sodium (Chloride) 270 mls @ 180.367 mls/hr IV Q24H [facility] Last Admin: 01/18/18 19:56 Dose: Not Given Potassium Chloride/Dextrose/Sod Cl (D5 1/2 Ns W/ 20 Meq/L Kcl) 1,000 mls @ 62 mls/hr IV ASDIRECTED [facility] Last Admin: 01/17/18 10:05 Dose: 62 mls/hr Potassium Chloride/Dextrose/Sod Cl (D5 1/2 Ns W/ 20 Meq/L Kcl) 1,000 mls @ 75 mls/hr IV ASDIRECTED [facility] Last Admin: 01/18/18 04:58 Dose: 75 mls/hr Sodium Chloride (Normal Saline) Confirm Administered Dose 250 mls @ as directed .ROUTE .STK-MED ONE Stop: 01/18/18 13:05 Last Admin: 01/18/18 18:03 Dose: 50 mls/hr Sodium Chloride (Normal Saline) 250 mls @ 50 mls/hr IV ASDIRECTED [facility] Lidocaine HCl (Xylocaine 2%) 0 mg IVPUSH ASDIRECTED PRN PRN Reason: Heart Methylprednisolone Sodium Succinate (Solu-Medrol) 125 mg IVPUSH ONETIME ONE Stop: 01/16/18 03:23 Last Admin: 01/16/18 03:29 Dose: 125 mg Methylprednisolone Sodium Succinate (Solu-Medrol) 80 mg IVPUSH Q8H [facility] Last Admin: 01/17/18 04:39 Dose: 80 mg Nicotine (Habitrol) 14 mg TRDERM DAILY [facility] Last Admin: 01/17/18 09:04 Dose: Not Given Nicotine Polacrilex (Nicorelief) 4 mg CHEW Q4H PRN PRN Reason: Other Nicotine Polacrilex (Nicorelief) 4 mg PO Q2H PRN PRN Reason: Other Last Admin: 01/17/18 10:10 Dose: 4 mg Nitroglycerin (Nitrostat) 0.4 mg SL ASDIRECTED PRN PRN Reason: Heart Non-Formulary Medication (Xx Nicorette Lozenges) 4 mg PO Q2H [facility] Last Admin: 01/16/18 21:52 Dose: Not Given Pantoprazole Sodium (Protonix Iv) 40 mg IVPUSH DAILY [facility] Last Admin: 01/19/18 09:04 Dose: 40 mg Prednisone (Prednisone) 40 mg PO 1200 [facility] Last Admin: 01/18/18 13:17 Dose: 40 mg Prednisone (Prednisone) 40 mg PO 1800 [facility] Last Admin: 01/18/18 18:02 Dose: 40 mg Prednisone (Prednisone) 60 mg PO WITHBREAKFAST [facility] Stop: 01/19/18 12:00 Last Admin: 01/19/18 11:00 Dose: 60 mg Sodium Chloride (Syrex Flush) 5 ml FLUSH Q8HR PRN PRN Reason: Keep Vein Open Stop: 01/16/18 00:02 Sodium Chloride (Syrex Flush) 5 ml FLUSH Q8HR PRN PRN Reason: Keep Vein Open Triamcinolone Acetonide (Triamcinolone Acetonide 0.1% Crm) 1 gm TOP BID [facility] Last Admin: 01/19/18 11:18 Dose: Not Given Vancomycin HCl (Pharmacy To Dose - Vancomycin) 0 dose .XX ASDIRECTED [facility] - Exam Physical Findings Comments:: GENERAL: Chronically ill-appearing adult white female sitting in wheelchair at bedside in no acute distress. Sister and friend at bedside. HEENT: Normocephalic, atraumatic. Jones facies. Conjunctiva clear. HFNC in place. Mucous membranes moist, posterior pharynx unremarkable. NECK: Supple, no masses. CV: Regular rate and rhythm, no murmurs, rubs, or gallops. 2+ radial pulses. PULMONARY: Normal effort, faint scattered end expiratory wheezes, mildly diminished in bilateral bases. ABDOMEN: Positive bowel sounds, soft, nontender, nondistended. EXTREMITIES: 1+ pedal edema. MUSCULOSKELETAL: Moves all extremities well. NEUROLOGICAL: No obvious deficits. DERMATOLOGIC: No rashes or suspicious lesions in exposed areas. PSYCHIATRIC: Notably fatigued with frequent falling asleep during exam, but appropriate answering of questions when awakened. - Problem List Review Problem List Initiated/Reviewed/Updated: Yes - My Orders Last 24 Hours: My Active Orders 01/19/18 09:37 Albuterol [Proventil Neb Soln] 2.5 mg NEB Q4HRRT PRN 01/19/18 09:38 RT Aerosol Therapy [RC] ASDIRECTED 01/19/18 11:00 Albuterol/Ipratropium [DuoNeb 3.0-0.5 MG/3 ML] 3 ml NEB Q6HRRT 01/19/18 12:00 Triamcinolone Acetonide [Triamcinolone Acetonide 0.1% Crm] 1 gm TOP BID PRN 01/19/18 21:00 Melatonin 3 mg PO BEDTIME 01/20/18 07:00 Pantoprazole [ProTONIX] 40 mg PO ONETIME ONE 01/20/18 08:00 predniSONE 40 mg PO WITHBREAKFAST - Plan Plan:: HPI and ED course 52yoF with a history of anal cancer who came into the ED due to progressive shortness of breath and abdominal pain. She was noted to have SaO2 80%, fever greater >101, WBC 40, neutrophils 97%, and lactate 8. Patient has metastatic anal cancer and was recently placed on home-hospice, however in the ED she rescinded her hospice benefits and desired admission for treatment of pneumonia. Oncology history Dx anal cancer in August 2016. She has been treated with chemotherapy and radiation at [facility] as well as [facility]. September 2017 PET scan demonstrated progressive disease with metastases to liver, lung, bone, and lymph nodes. She was subsequently placed on home-hospice at that time however she had remained a full code. Hospital course She was initially requiring 15lpm via NRB and eventually required BiPAP during initial hours of hospitalization. Respiratory status stabilized and began improving on day 3 of admission, but also on that day nurses reported the patient began having occasional visual hallucinations, likely related to steroid psychosis and delirium. Repeat chest x-ray significant bibasilar infiltrates however some clearing. Respiratory status continuing to improve and patient was noted to have BiPAP and humidified nasal cannula oxygen at home. Primary problems Acute on chronic hypoxic and hypercarbic respiratory failure: Improved. Respiratory acidosis: Resolved. Severe sepsis: Resolved. Pneumonia, bilateral lower lobes: Improving. Neutrophilia: Improving. Anemia, macrocytic: Stable. Constipation: Resolved. Hallucinations: Likely due to steroid psychosis and delirium. Improving. Immunocompromised host Tobacco dependency Chronic problems Primary anal CA with metastasis Hypertension Depression Plan - Continue HFNC with decrease in lpm as able based on close monitoring of respiratory status - Continue Zosyn for CAP; plan to transition to oral antibiotic with Augmentin tomorrow if continuing to clinically improve - Discontinue vancomycin given lack of trough drawn last night, ongoing lack of growth on cultures, and limited prior risks for MRSA - Decrease steroids to morning dosing only given insomnia and likely steroid psychosis: prednisone 60mg today and 40mg tomorrow with plan to taper over the following week - Give additional dose of furosemide 20mg IV today due to being +5L for hospitalization and edema - Change PPI therapy to oral - Continue to hold narcotics and benzodiazepines, where were stopped 2 days ago due to hallucinations; may restart at small doses as needed given they were previously chronic medications - Hold off on labs for tomorrow, unless clinically indicated at which time will obtain at that time - Continue in acute care status today; plan for possible discharge in the next 1 -2 days pending ongoing improvement in pulmonary status
[2018-01-19] MEDS: LORazepam 0.5 MG Tab PO PRN (19:44)
[2018-01-19] MEDS ORDERED: Melatonin 3 MG Tab PO SCH (21:00)
[2018-01-19] MEDS: Albuterol 0.083% 2.5 MG/3 ML Neb Soln NEB PRN (21:00)
[2018-01-20] MEDS: Acetaminophen 325 MG Tab PO PRN ×2 (00:01→04:44)
[2018-01-20] MEDS ORDERED: LORazepam 0.5 MG Tab PO ONE (00:32)
[2018-01-20] MEDS ORDERED: Aspirin 81 MG Tab.Chew PO ONE (02:28)
[2018-01-20] MEDS ORDERED: Metoprolol Tartrate 25 MG Tab PO ONE (02:28)
[2018-01-20] MEDS ORDERED: Atropine 0.1 MG/ML 10 ML Syringe IVPUSH PRN (02:46)
[2018-01-20] MEDS ORDERED: EPINEPHrine 1:10,000 1 MG/10 ML Syringe IVPUSH PRN (02:46)
[2018-01-20] MEDS ORDERED: Nitroglycerin 0.4 MG Tab.SL SL PRN (02:46)
[2018-01-20] MEDS ORDERED: Lidocaine 2% 100 MG/5 ML Syringe IVPUSH PRN (02:46)
[2018-01-20] MEDS: Albuterol/Ipratropium 3.0-0.5 MG/3 ML Neb Soln NEB SCH ×2 (04:38→11:56)
[2018-01-20] MEDS ORDERED: HYDROmorphone 2 MG Tab PO PRN (04:56)
[2018-01-20] MEDS ORDERED: HYDROmorphone 1 MG/ML Syringe IVPUSH PRN (05:08)
[2018-01-20] MEDS ORDERED: HYDROmorphone 1 MG/ML Syringe ONE (05:20)
[2018-01-20] MEDS: Piperacillin/Tazobactam/Dext 50 ML IV SCH ×2 (05:28)
[2018-01-20] MEDS: HYDROmorphone 1 MG/ML Syringe IVPUSH PRN ×2 (06:07→11:10)
[2018-01-20] MEDS ORDERED: Pantoprazole 40 MG Tab.CR PO ONE (07:00)
[2018-01-20] MEDS ORDERED: predniSONE 20 MG Tab PO SCH (08:00)
[2018-01-20] MEDS: Nicotine 21 MG/24 Hr Patch TRDERM SCH (11:08)
[2018-01-20] MEDS: OLANZapine 5 MG Tab PO SCH (11:09)
[2018-01-20] MEDS: Citalopram 20 MG Tab PO SCH (11:09)
[2018-01-20] MEDS: Loratadine 10 MG Tab PO SCH (11:09)
[2018-01-20] MEDS ORDERED: LORazepam 2 MG/ML SDV IVPUSH PRN (11:20)
[2018-01-20] MEDS ORDERED: Acetaminophen 650 MG Supp RECTAL PRN (11:21)
--- NOTE | 2018-01-20 11:47 | PCM.PN ---
- General Info Date of Service: 01/20/18 Subjective Update: Patient resting in bed upon first visit to the room. Family reports after the second dose of pain medication early this morning she has finally been resting comfortably. Around 10:30 am, patient awoke and asked to use the bathroom. Nursing reports she did fair with two assist, but had a desaturation of her oxygen that required a non-rebreather at 10 liters. Family at bedside. - Review of Systems Systems Review Comment:: Unable to perform ROS due to patient's incoherent status at this time. Is able to open eyes for brief period of time when asked to. Reported to nursing staff that her neck was hurting and requested medication. - Patient Data Vitals - Most Recent: Last Vital Signs Temp 96.4 F 01/20/18 06:11 Pulse 106 H 01/20/18 06:11 Resp 28 H 01/20/18 06:11 BP 112/73 01/20/18 06:11 Pulse Ox 88 L 01/20/18 06:11 Weight - Most Recent: 217 lb 6.4 oz I&O - Last 24 Hours: Intake & Output 01/19/18 01/20/18 01/20/18 22:59 06:59 14:59 Intake Total 250 190 Output Total 800 Balance -550 190 Lab Results Last 24 Hours: Laboratory Results - last 24 hr 01/20/18 Range/Units 01:15 Troponin I 0.55 H* (0.00-0.070) ng/mL Homero Results Last 24 Hours: Microbiology 01/18/18 21:15 - Final Sputum - Expectorated 01/15/18 22:30 Aerobic Blood Culture - Preliminary Blood - Venous - Lab Draw NO GROWTH AFTER 4 DAYS Anaerobic Blood Culture - Preliminary NO GROWTH AFTER 4 DAYS 01/15/18 22:00 Aerobic Blood Culture - Preliminary Blood - Venous NO GROWTH AFTER 4 DAYS Anaerobic Blood Culture - Preliminary NO GROWTH AFTER 4 DAYS Med Orders - Current: Current Medications Acetaminophen (Tylenol) 650 mg RECTAL Q6H PRN PRN Reason: Pain Hydromorphone HCl (Dilaudid) 1 - 2 mg IVPUSH Q2H PRN PRN Reason: Pain Last Admin: 01/20/18 11:10 Dose: 1 mg Lorazepam (Ativan) 0.5 - 1 mg IVPUSH Q6H PRN PRN Reason: Anxiety Nicotine (Habitrol) 21 mg TRDERM DAILY [facility] Last Admin: 01/20/18 11:08 Dose: 21 mg Ondansetron HCl (Zofran) 4 mg IV Q6H PRN PRN Reason: Nausea/Vomiting Last Admin: 01/20/18 04:53 Dose: 4 mg Sodium Chloride (Syrex Flush) 5 ml FLUSH Q8HR PRN PRN Reason: Keep Vein Open Last Admin: 01/19/18 12:00 Dose: 5 ml Discontinued Medications Acetaminophen (Tylenol Extra Strength) 1,000 mg PO ONETIME ONE Stop: 01/15/18 21:52 Last Admin: 01/15/18 21:50 Dose: 1,000 mg Acetaminophen (Tylenol Extra Strength) Confirm Administered Dose 1,000 mg .ROUTE .STK-MED ONE Stop: 01/15/18 21:51 Last Admin: 01/15/18 22:01 Dose: Not Given Acetaminophen (Tylenol) 650 mg PO Q4H PRN PRN Reason: Pain (Mild 1-3)/fever Last Admin: 01/20/18 04:44 Dose: 650 mg Albuterol (Proventil Neb Soln) 2.5 mg NEB Q4HRRT PRN PRN Reason: Wheezing Last Admin: 01/19/18 21:00 Dose: 2.5 mg Albuterol/Ipratropium (Duoneb 3.0-0.5 Mg/3 Ml) 3 ml NEB ONETIME ONE Stop: 01/15/18 21:47 Last Admin: 01/15/18 21:50 Dose: 3 ml Albuterol/Ipratropium (Duoneb 3.0-0.5 Mg/3 Ml) 3 ml NEB Q4H PRN PRN Reason: Shortness Of Breath/wheezing Last Admin: 01/16/18 08:29 Dose: 3 ml Albuterol/Ipratropium (Duoneb 3.0-0.5 Mg/3 Ml) 3 ml NEB Q4HRRT [facility] Last Admin: 01/19/18 09:42 Dose: Not Given Albuterol/Ipratropium (Duoneb 3.0-0.5 Mg/3 Ml) 3 ml NEB Q6HRRT [facility] Last Admin: 01/20/18 04:38 Dose: 3 ml Alprazolam (Xanax) 0.25 mg PO ONETIME ONE Stop: 01/19/18 02:44 Last Admin: 01/19/18 02:46 Dose: 0.25 mg Aspirin (Aspirin) 324 mg PO ONETIME ONE Stop: 01/20/18 02:29 Last Admin: 01/20/18 02:49 Dose: 324 mg Atropine Sulfate (Atropine 0.1 Mg/Ml) 0 mg IVPUSH ASDIRECTED PRN PRN Reason: Heart Atropine Sulfate (Atropine 0.1 Mg/Ml) 0 mg IVPUSH ASDIRECTED PRN PRN Reason: Heart Citalopram Hydrobromide (Celexa) 40 mg PO DAILY [facility] Last Admin: 01/20/18 11:09 Dose: Not Given Dexamethasone (Dexamethasone) 4 mg PO ASDIRECTED [facility] Enoxaparin Sodium (Lovenox) 40 mg SUBCUT Q24H [facility] Last Admin: 01/16/18 12:16 Dose: 40 mg Epinephrine HCl (Epinephrine 1:10,000) 1 mg IVPUSH ASDIRECTED PRN PRN Reason: Heart Epinephrine HCl (Epinephrine 1:10,000) 1 mg IVPUSH ASDIRECTED PRN PRN Reason: Heart Furosemide (Lasix) 20 mg IVPUSH NOW ONE Stop: 01/18/18 10:06 Last Admin: 01/18/18 10:37 Dose: 20 mg Furosemide (Lasix) 20 mg IVPUSH NOW ONE Stop: 01/19/18 10:10 Last Admin: 01/19/18 11:02 Dose: 20 mg Hydromorphone HCl (Dilaudid) 0.5 mg IVPUSH Q2H PRN PRN Reason: Pain (severe 7-10) Hydromorphone HCl (Dilaudid) 2 mg PO Q4H PRN PRN Reason: Pain Hydromorphone HCl (Dilaudid) 1 mg IVPUSH Q2H PRN PRN Reason: Pain Last Admin: 01/20/18 05:22 Dose: 1 mg Hydromorphone HCl (Dilaudid) Confirm Administered Dose 1 mg .ROUTE .STK-MED ONE Stop: 01/20/18 05:21 Last Admin: 01/20/18 05:36 Dose: Not Given Sodium Chloride (Normal Saline) 1,000 mls @ 999 mls/hr IV .BOLUS ONE Stop: 01/15/18 22:58 Last Admin: 01/15/18 23:00 Dose: 999 mls/hr Piperacillin Sod/Tazobactam (Sod 4.5 gm/ Sodium Chloride) 100 mls @ 200 mls/hr IV Q6H [facility] Last Admin: 01/16/18 05:58 Dose: 200 mls/hr Vancomycin HCl 1 gm/ Sodium (Chloride) 250 mls @ 167 mls/hr IV Q24H [facility] Last Admin: 01/16/18 01:39 Dose: 167 mls/hr Sodium Chloride (Normal Saline) 1,000 mls @ 125 mls/hr IV ASDIRECTED [facility] Last Admin: 01/17/18 00:03 Dose: 125 mls/hr Piperacillin Sod/Tazobactam (Sod 4.5 gm/ Sodium Chloride) 100 mls @ 200 mls/hr IV 0000,0600,1200,1800 [facility] Vancomycin HCl 1 gm/ Sodium (Chloride) 270 mls @ 180.367 mls/hr IV Q24H [facility] Last Admin: 01/18/18 19:56 Dose: Not Given Piperacillin/Tazobactam/Dextrose (Zosyn In Dextrose Iso-Osmotic 3.375 Gm) 50 mls @ 100 mls/hr IV 0000,0600,1200,1800 [facility] Last Admin: 01/20/18 05:28 Dose: 100 mls/hr Potassium Chloride/Dextrose/Sod Cl (D5 1/2 Ns W/ 20 Meq/L Kcl) 1,000 mls @ 62 mls/hr IV ASDIRECTED [facility] Last Admin: 01/17/18 10:05 Dose: 62 mls/hr Potassium Chloride/Dextrose/Sod Cl (D5 1/2 Ns W/ 20 Meq/L Kcl) 1,000 mls @ 75 mls/hr IV ASDIRECTED [facility] Last Admin: 01/18/18 04:58 Dose: 75 mls/hr Sodium Chloride (Normal Saline) Confirm Administered Dose 250 mls @ as directed .ROUTE .[facility]-MED ONE Stop: 01/18/18 13:05 Last Admin: 01/18/18 18:03 Dose: 50 mls/hr Sodium Chloride (Normal Saline) 250 mls @ 50 mls/hr IV ASDIRECTED [facility] Lidocaine HCl (Xylocaine 2%) 0 mg IVPUSH ASDIRECTED PRN PRN Reason: Heart Lidocaine HCl (Xylocaine 2%) 0 mg IVPUSH ASDIRECTED PRN PRN Reason: Heart Loratadine (Claritin) 10 mg PO DAILY [facility] Last Admin: 01/20/18 11:09 Dose: Not Given Lorazepam (Ativan) 0.5 mg PO QID PRN PRN Reason: Anxiety Last Admin: 01/19/18 19:44 Dose: 0.5 mg Lorazepam (Ativan) 0.5 mg PO ONETIME ONE Stop: 01/20/18 00:33 Last Admin: 01/20/18 00:51 Dose: 0.5 mg Melatonin (Melatonin) 3 mg PO BEDTIME [facility] Last Admin: 01/19/18 21:35 Dose: 3 mg Methylprednisolone Sodium Succinate (Solu-Medrol) 125 mg IVPUSH ONETIME ONE Stop: 01/16/18 03:23 Last Admin: 01/16/18 03:29 Dose: 125 mg Methylprednisolone Sodium Succinate (Solu-Medrol) 80 mg IVPUSH Q8H [facility] Last Admin: 01/17/18 04:39 Dose: 80 mg Metoprolol Tartrate (Lopressor) 25 mg PO ONETIME ONE Stop: 01/20/18 02:29 Last Admin: 01/20/18 02:49 Dose: 25 mg Nicotine (Habitrol) 14 mg TRDERM DAILY [facility] Last Admin: 01/17/18 09:04 Dose: Not Given Nicotine Polacrilex (Nicorelief) 4 mg CHEW Q4H PRN PRN Reason: Other Nicotine Polacrilex (Nicorelief) 4 mg PO Q2H PRN PRN Reason: Other Last Admin: 01/17/18 10:10 Dose: 4 mg Nitroglycerin (Nitrostat) 0.4 mg SL ASDIRECTED PRN PRN Reason: Heart Nitroglycerin (Nitrostat) 0.4 mg SL ASDIRECTED PRN PRN Reason: Heart Non-Formulary Medication (Xx Nicorette Lozenges) 4 mg PO Q2H [facility] Last Admin: 01/16/18 21:52 Dose: Not Given Nf: Nicotine Polacrilex 2 Mg Lozenges 1 each PO Q2H PRN PRN Reason: Other Olanzapine (Zyprexa) 5 mg PO DAILY [facility] Last Admin: 01/20/18 11:09 Dose: Not Given Pantoprazole Sodium (Protonix Iv) 40 mg IVPUSH DAILY [facility] Last Admin: 01/19/18 09:04 Dose: 40 mg Pantoprazole Sodium (Protonix) 40 mg PO ONETIME ONE Stop: 01/20/18 07:01 Last Admin: 01/20/18 11:09 Dose: Not Given Prednisone (Prednisone) 40 mg PO 1200 [facility] Last Admin: 01/18/18 13:17 Dose: 40 mg Prednisone (Prednisone) 40 mg PO 1800 [facility] Last Admin: 01/18/18 18:02 Dose: 40 mg Prednisone (Prednisone) 60 mg PO WITHBREAKFAST [facility] Stop: 01/19/18 12:00 Last Admin: 01/19/18 11:00 Dose: 60 mg Prednisone (Prednisone) 40 mg PO WITHBREAKFAST [facility] Last Admin: 01/20/18 11:09 Dose: Not Given Senna/Docusate Sodium (Senna Plus) 1 tab PO BID [facility] Last Admin: 01/20/18 11:09 Dose: Not Given Sodium Chloride (Syrex Flush) 5 ml FLUSH Q8HR PRN PRN Reason: Keep Vein Open Stop: 01/16/18 00:02 Sodium Chloride (Syrex Flush) 5 ml FLUSH Q8HR PRN PRN Reason: Keep Vein Open Triamcinolone Acetonide (Triamcinolone Acetonide 0.1% Crm) 1 gm TOP BID [facility] Last Admin: 01/19/18 11:18 Dose: Not Given Triamcinolone Acetonide (Triamcinolone Acetonide 0.1% Crm) 1 gm TOP BID PRN PRN Reason: contact dermatitis Vancomycin HCl (Pharmacy To Dose - Vancomycin) 0 dose .XX ASDIRECTED [facility] - Exam Quality Assessment: Supplemental Oxygen (10 liters non-rebreather 88-89%). No: Urine Catheter, DVT Prophylaxis General: Cooperative, Lethargic (Opens eyes briefly when asked to.). No: Alert , Oriented Lungs: Decreased Breath Sounds (throughout), Wheezing (expiratory wheezes to lower lobes), Other (Mild to moderately labored respiratory effort with intercostal retractions noted). No: Stridor Cardiovascular: Regular Rhythm, No Murmurs, Tachycardia (100-110s) Extremities: Pedal Edema (trace-1+ to BLE). No: Mottled Skin: Warm, Dry, Other (Ashen appearance to face) Neurological: No: Normal Speech Psy/Mental Status: No: Alert, Anxious EKG INTERPRETATION EKG Date: 01/20/18 Time: 00:46 Rhythm: Other (Sinus tachycardia) Rate (Beats/Min): 118 [place]: RAD-Right [place] Deviation P-Wave: Present QRS: Normal ST-T: Other (No ST segment changes noted) QT: Normal HI/PQ Interval: Shortened HI - Problem List Review Problem List Initiated/Reviewed/Updated: Yes - My Orders Last 24 Hours: My Active Orders 01/20/18 00:31 EKG 12 Lead [EK] ONETIME 01/20/18 00:32 EKG Documentation Completion [RC] ASDIRECTED 01/20/18 06:01 HYDROmorphone [Dilaudid] 1 - 2 mg IVPUSH Q2H PRN 01/20/18 11:15 Comfort Measures [OM.PC] Routine Code Status [Resuscitation Status] Routine 01/20/18 11:20 LORazepam [Ativan] 0.5 - 1 mg IVPUSH Q6H PRN 01/20/18 11:21 Acetaminophen [Tylenol] 650 mg RECTAL Q6H PRN - Plan Plan:: HPI: This is a 52 year old female who presented to the ED with progressive shortness of breath and abdominal pain. She was noted to have SaO2 of 80%, fever of greater than 101 F, WBC of 40, and elevated neutrophils and lactic acid of 8. She was found to have a bilateral lower lobe pneumonia with acute on chronic respiratory failure. The patient has a history of anal cancer with metastasis and was on home-hospice, however she rescinded her hospice care and desired admission and to be a full code. UPDATE: Phone call received around midnight that patient began having chest pain. EKG was obtained that showed sinus tachycardia without ST segment elevation or changes. Troponin found to be elevated at 0.55. Discussion was held with family regarding her wishes for further treatment. Patient declined transfer for NSTEMI and was treated medically here. Phone call received in energy analyst that patient was in significant amount of lower abdominal pain. She was given dilaudid IV and after two doses had relief and was able to rest. During rounds, patient not coherent and will not answer questions. and family at bedside. Discussion held with regarding the patient unable to make decision regarding code status and the progressive nature of her current status. requesting patient be made DNR and comfort measures only around 11 am. Primary Assessment: NSTEMI. She was given aspirin 324 mg x 1 and lopressor 25 mg po x 1 last night. She was placed on telemetry, however this is now discontinued. Acute on chronic hypoxic and hypercarbic respiratory failure, worsening. Patient placed on 10 liter non-rebreather with saturations of 88-89%. Multi-system organ failure. Pneumonia, bilateral lower lobes. Discontinued IV zosyn and oral prednisone. Hallucinations. Immunocompromised host. Tobacco dependency. wishes for nicotine patch to continue. Secondary Assessment: Primary anal cancer with metastasis Hypertension Depression Plan: -Patient has been made a DNR/comfort measures only code status. Patient's is imminent given her current clinical state. Referral placed to hospice for inpatient care per family wishes. [employer] called and requested to be present per family wishes. -Discontinue all oral medications and antibiotic -IV dilaudid for pain, IV zofran for nausea, IV lorazepam for anxiety -Discussed use of muir catheter, but family wishing to hold off at this time
[2018-01-20 14:50] VITALS: BP 89/42
[2018-01-20] MEDS: Albuterol 0.083% 2.5 MG/3 ML Neb Soln NEB PRN ×2 (16:56→19:36)
[2018-01-21] MEDS: Albuterol 0.083% 2.5 MG/3 ML Neb Soln NEB PRN ×4 (04:08→14:36)
[2018-01-21] MEDS ORDERED: Sodium Chloride 0.65% Nasal Spray 45 ML Bottle NAS PRN (06:36)
[2018-01-21] MEDS: Nicotine 21 MG/24 Hr Patch TRDERM SCH (08:06)
[2018-01-21] MEDS: Nystatin Susp 100,000 Unit/ML 5 ML UD Cup PO SCH ×3 (09:25→15:40)
[2018-01-21] MEDS ORDERED: LORazepam 0.5 MG Tab PO PRN (10:32)
--- NOTE | 2018-01-21 12:16 | PCM.DCSUM1 ---
Discharge Summary - Hospital Course Brief History: This is a 52 year old female who presented to the ED with progressive shortness of breath and abdominal pain. She was found to have an SaO2 of 80%, fever greater than 101 F, WBC of 40 with a left shift, and a lactic acid of 8. She was found to have bilateral lower lobe pneumonia with acute on chronic respiratory failure. The patient has a history of anal cancer with metastasis and was on home-hospice, however she rescinded her hospice care and desired admission and to be a full code without intubation. - Discharge Data Discharge Date: 01/21/18 Discharge Disposition: DC/Tfer to Hospice - Home 50 Condition: Fair - Patient Summary/Data Consults: Consultations 01/16/18 11:37 Consult to Appointment Setter [CONS] Routine - Patient Instructions Diet: Regular Diet as Tolerated Activity: As Tolerated Driving: Do Not Drive Showering/Bathing: May Shower Notify Provider of: Fever, Increased Pain, Nausea and/or Vomiting Other/Special Instructions: Referral back to Hospice has been placed. - Discharge Plan Prescriptions/Med Rec: Nystatin [Mycostatin] 5 ml PO QID 7 Days #140 ml Ondansetron [Zofran ODT] 4 mg PO Q6H PRN #15 tab.dis PRN Reason: Nausea Home Medications: Home Meds Citalopram [Celexa] 40 mg PO DAILY 03/06/17 [History] LORazepam [Ativan] 1 tab PO QID PRN 03/06/17 [History] OLANZapine [ZyPREXA] 5 mg PO DAILY 03/06/17 [History] Dexamethasone 4 mg PO ASDIRECTED 06/10/17 [History] HYDROmorphone [Dilaudid] 2 mg PO Q4H PRN 06/10/17 [History] Potassium Chloride [Klor-Con M20] 20 meq PO DAILY 06/10/17 [History] Albuterol/Ipratropium [DuoNeb 3.0-0.5 MG/3 ML] 3 ml INH Q6H PRN 01/15/18 [ History] Loratadine [Claritin] 10 mg PO DAILY 01/15/18 [History] Sennosides/Docusate Sodium [Senna-Docusate Sodium] 1 each PO BID 01/15/18 [ History] guaiFENesin [Cough Syrup] 200 mg PO Q4H PRN 01/15/18 [History] Triamcinolone Acetonide [Triamcinolone Acetonide 0.1% Crm] 1 applic TOP BID 10/05 [History] Albuterol [Proventil Neb Soln] 2.5 mg NEB Q2H PRN neb 01/21/18 [Rx] Furosemide [Lasix] 20 mg PO DAILY PRN #0 01/21/18 [Rx] Nystatin [Mycostatin] 5 ml PO QID 7 Days #140 ml 01/21/18 [Rx] Ondansetron [Zofran ODT] 4 mg PO Q6H PRN #15 tab.dis 01/21/18 [Rx] Referrals: [facility] [Outside] - Discharge Summary/Plan Comment DC Time >30 min.: Yes (Discussion with patient and family & social sciences professor was long. 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 Secondary: Primary anal cancer with metastasis, hypertension, depression Final diagnosis: Primary: Acute on chronic respiratory failure with respiratory acidosis, resolved; Sepsis w/o shock, resolved; Neutrophilia, resolving; Bilateral lower lobe pneumonia-CAP, resolving; Dehydration, resolved; Asymptomatic UTI, resolved ; Immunocompromised host; tobacco dependence; steroid psychosis and delirium with visual hallucinations, resolved; NSTEMI, resolved; Oral thrush Secondary: Primary anal cancer with metastasis, hypertension, depression Procedures performed: None Hospital Course: The patient's hospital course was quite variable and she was in critical condition off and on during her stay. She was admitted and started on 15 liter non-rebreather, however this had to be changed to BiPap shortly after getting to the floor. ABGs were abnormal, but lactic acid was 0.9. She was given IV vancomycin and zosyn. Sputum culture was obtained that showed overgrowth with yeast and rare gram negative & positive bacilli. Blood cultures x 2 were done and negative. Urine culture showed mixed microflora. She was also given IV solumedrol and nebulizer treatments. She was given IV fluid hydration until as she became fluid overloaded and required a couple doses of IV lasix. On 01/18/18 patient started experiencing visual hallucinations. The steroids were tapered down and eventually switched to oral as this was the likely culprit of the hallucinations. The patient had a repeat chest x-ray this day as well that showed some clearing of the bilateral lower lobe pneumonia. On 01/20/18 at 0000 patient reported chest pain. EKG obtained at that time showed sinus tachycardia with no ST segment changes. Troponin elevated at 0.55. Patient wished to remain in house and declined transfer. She was given aspirin 324 mg po x 1 along with lopressor 25 mg po x 1. I was unable to give heparin as her platelet count was low. Around 0500, call received that patient was having severe lower abdominal pain. She was given 1 mg of IV dilaudid without relief, so was given 2 mg of IV dilaudid with relief. On rounds that morning, patient extremely lethargic and not coherent. Would only open eyes for brief second and fall asleep. Breathing and coloring noted to be worsening. At that time patient continued to be full code without intubation. Discussion held with patient's regarding her critical condition at which time he decided she was a DNR/comfort measures code. Lab draws, IV antibiotics, and oral pills discontinued at that time. Around 1999, patient became completely coherent and spent the night awake visiting with family and playing games. During rounds, patient sitting up eating breakfast and alert and oriented x 3. Long discussion held with patient and regarding discharge planning versus staying in house. This took greater than 30 minutes along with contacting the social sciences professor to determine eligibility and options. Patient decided she would like to go home with hospice. She states she will remain a DNR/comfort measures code. New medications on discharge: -Nystatin 5 mL po QID x 7 days -Zofran ODT 4 mg every 6 hours PRN New changes to home medications on discharge: -May use plain Albuterol 2.5 mg neb every 2 hours PRN -Lasix 20 mg po daily PRN -Potassium 20 mEq po daily with lasix use Regular home medications on discharge: -Senna 1 tab po BID -Claritin 10 mg po daily -DuoNeb every 6 hours PRN -Celexa 40 mg po daily -Dilaudid 2 mg po every 4 hours PRN -Dexamethasone 4 mg po as directed -Lorazepam 1 tab po QID PRN -Zyprexa 5 mg po daily -Guaifenesin cough syrup 200 mg po every 4 hours PRN -Triamcinolone 0.1% cream top BID Condition, Treatment, & Final Disposition: The patient is in stable condition at the time of discharge. She will be discharged home today with her family. Referral placed to [facility]. - General Info Date of Service: 01/21/18 Subjective Update: Patient became coherent and alert around 8 pm last evening. She has been up all night visiting with her family and playing games. She is sitting in her wheelchair eating breakfast. Functional Status: Reports: Pain Controlled, Tolerating Diet, Ambulating, Urinating. Denies: New Symptoms - Review of Systems General: Reports: Weakness, Fatigue. Denies: Fever Pulmonary: Reports: Shortness of Breath (stable), Cough, Wheezing Cardiovascular: Reports: Edema. Denies: Chest Pain Gastrointestinal: Denies: Abdominal Pain, Constipation, Decreased Appetite, Diarrhea, Nausea, Vomiting Genitourinary: Reports: No Symptoms Psychiatric: Reports: No Symptoms - Patient Data Vitals - Most Recent: Last Vital Signs Temp 97.6 F 01/20/18 11:00 Pulse 107 H 01/21/18 04:38 Resp 20 01/20/18 11:00 BP 89/42 L 01/20/18 11:00 Pulse Ox 95 01/21/18 04:38 Weight - Most Recent: 217 lb 6.4 oz GISSELLE Results - Last 24 hrs: Microbiology 01/18/18 21:15 Respiratory Culture - Final Sputum - Expectorated - Final 01/15/18 22:30 Aerobic Blood Culture - Final Blood - Venous - Lab Draw NO GROWTH AFTER 5 DAYS Anaerobic Blood Culture - Final NO GROWTH AFTER 5 DAYS 01/15/18 22:00 Aerobic Blood Culture - Final Blood - Venous NO GROWTH AFTER 5 DAYS Anaerobic Blood Culture - Final NO GROWTH AFTER 5 DAYS Med Orders - Current: Current Medications Acetaminophen (Tylenol) 650 mg RECTAL Q6H PRN PRN Reason: Pain Albuterol (Proventil Neb Soln) 2.5 mg NEB Q2H PRN PRN Reason: Dyspnea Last Admin: 01/21/18 10:24 Dose: 2.5 mg Hydromorphone HCl (Dilaudid) 1 - 2 mg IVPUSH Q2H PRN PRN Reason: Pain Last Admin: 01/20/18 11:10 Dose: 1 mg Lorazepam (Ativan) 0.5 mg PO QID PRN PRN Reason: Anxiety Last Admin: 01/21/18 12:03 Dose: 0.5 mg Nicotine (Habitrol) 21 mg TRDERM DAILY [facility] Last Admin: 01/21/18 08:06 Dose: 21 mg Nystatin (Mycostatin) 5 ml PO QID ANGELA Last Admin: 01/21/18 09:25 Dose: 5 ml Ondansetron HCl (Zofran) 4 mg IV Q6H PRN PRN Reason: Nausea/Vomiting Last Admin: 01/20/18 04:53 Dose: 4 mg Sodium Chloride (Syrex Flush) 5 ml FLUSH Q8HR PRN PRN Reason: Keep Vein Open Last Admin: 01/19/18 12:00 Dose: 5 ml Sodium Chloride ([place] Nasal [place]) 0 ml MILAGROS Q2H PRN PRN Reason: Congestion Last Admin: 01/21/18 06:58 Dose: 1 spray Discontinued Medications Acetaminophen (Tylenol Extra Strength) 1,000 mg PO ONETIME ONE Stop: 01/15/18 21:52 Last Admin: 01/15/18 21:50 Dose: 1,000 mg Acetaminophen (Tylenol Extra Strength) Confirm Administered Dose 1,000 mg .ROUTE .STK-MED ONE Stop: 01/15/18 21:51 Last Admin: 01/15/18 22:01 Dose: Not Given Acetaminophen (Tylenol) 650 mg PO Q4H PRN PRN Reason: Pain (Mild 1-3)/fever Last Admin: 01/20/18 04:44 Dose: 650 mg Albuterol (Proventil Neb Soln) 2.5 mg NEB Q4HRRT PRN PRN Reason: Wheezing Last Admin: 01/20/18 16:56 Dose: 2.5 mg Albuterol (Proventil Neb Soln) 2.5 mg NEB Q4HRRT PRN PRN Reason: Dyspnea Last Admin: 01/21/18 08:00 Dose: 2.5 mg Albuterol/Ipratropium (Duoneb 3.0-0.5 Mg/3 Ml) 3 ml NEB ONETIME ONE Stop: 01/15/18 21:47 Last Admin: 01/15/18 21:50 Dose: 3 ml Albuterol/Ipratropium (Duoneb 3.0-0.5 Mg/3 Ml) 3 ml NEB Q4H PRN PRN Reason: Shortness Of Breath/wheezing Last Admin: 01/16/18 08:29 Dose: 3 ml Albuterol/Ipratropium (Duoneb 3.0-0.5 Mg/3 Ml) 3 ml NEB Q4HRRT [facility] Last Admin: 01/19/18 09:42 Dose: Not Given Albuterol/Ipratropium (Duoneb 3.0-0.5 Mg/3 Ml) 3 ml NEB Q6HRRT [facility] Last Admin: 01/20/18 11:56 Dose: Not Given Alprazolam (Xanax) 0.25 mg PO ONETIME ONE Stop: 01/19/18 02:44 Last Admin: 01/19/18 02:46 Dose: 0.25 mg Aspirin (Aspirin) 324 mg PO ONETIME ONE Stop: 01/20/18 02:29 Last Admin: 01/20/18 02:49 Dose: 324 mg Atropine Sulfate (Atropine 0.1 Mg/Ml) 0 mg IVPUSH ASDIRECTED PRN PRN Reason: Heart Atropine Sulfate (Atropine 0.1 Mg/Ml) 0 mg IVPUSH ASDIRECTED PRN PRN Reason: Heart Citalopram Hydrobromide (Celexa) 40 mg PO DAILY [facility] Last Admin: 01/20/18 11:09 Dose: Not Given Dexamethasone (Dexamethasone) 4 mg PO ASDIRECTED [facility] Enoxaparin Sodium (Lovenox) 40 mg SUBCUT Q24H [facility] Last Admin: 01/16/18 12:16 Dose: 40 mg Epinephrine HCl (Epinephrine 1:10,000) 1 mg IVPUSH ASDIRECTED PRN PRN Reason: Heart Epinephrine HCl (Epinephrine 1:10,000) 1 mg IVPUSH ASDIRECTED PRN PRN Reason: Heart Furosemide (Lasix) 20 mg IVPUSH NOW ONE Stop: 01/18/18 10:06 Last Admin: 01/18/18 10:37 Dose: 20 mg Furosemide (Lasix) 20 mg IVPUSH NOW ONE Stop: 01/19/18 10:10 Last Admin: 01/19/18 11:02 Dose: 20 mg Hydromorphone HCl (Dilaudid) 0.5 mg IVPUSH Q2H PRN PRN Reason: Pain (severe 7-10) Hydromorphone HCl (Dilaudid) 2 mg PO Q4H PRN PRN Reason: Pain Hydromorphone HCl (Dilaudid) 1 mg IVPUSH Q2H PRN PRN Reason: Pain Last Admin: 01/20/18 05:22 Dose: 1 mg Hydromorphone HCl (Dilaudid) Confirm Administered Dose 1 mg .ROUTE .STK-MED ONE Stop: 01/20/18 05:21 Last Admin: 01/20/18 05:36 Dose: Not Given Sodium Chloride (Normal Saline) 1,000 mls @ 999 mls/hr IV .BOLUS ONE Stop: 01/15/18 22:58 Last Admin: 01/15/18 23:00 Dose: 999 mls/hr Piperacillin Sod/Tazobactam (Sod 4.5 gm/ Sodium Chloride) 100 mls @ 200 mls/hr IV Q6H [facility] Last Admin: 01/16/18 05:58 Dose: 200 mls/hr Vancomycin HCl 1 gm/ Sodium (Chloride) 250 mls @ 167 mls/hr IV Q24H [facility] Last Admin: 01/16/18 01:39 Dose: 167 mls/hr Sodium Chloride (Normal Saline) 1,000 mls @ 125 mls/hr IV ASDIRECTED [facility] Last Admin: 01/17/18 00:03 Dose: 125 mls/hr Piperacillin Sod/Tazobactam (Sod 4.5 gm/ Sodium Chloride) 100 mls @ 200 mls/hr IV 0000,0600,1200,1800 [facility] Vancomycin HCl 1 gm/ Sodium (Chloride) 270 mls @ 180.367 mls/hr IV Q24H [facility] Last Admin: 01/18/18 19:56 Dose: Not Given Piperacillin/Tazobactam/Dextrose (Zosyn In Dextrose Iso-Osmotic 3.375 Gm) 50 mls @ 100 mls/hr IV 0000,0600,1200,1800 [facility] Last Admin: 01/20/18 05:28 Dose: 100 mls/hr Potassium Chloride/Dextrose/Sod Cl (D5 1/2 Ns W/ 20 Meq/L Kcl) 1,000 mls @ 62 mls/hr IV ASDIRECTED [facility] Last Admin: 01/17/18 10:05 Dose: 62 mls/hr Potassium Chloride/Dextrose/Sod Cl (D5 1/2 Ns W/ 20 Meq/L Kcl) 1,000 mls @ 75 mls/hr IV ASDIRECTED [facility] Last Admin: 01/18/18 04:58 Dose: 75 mls/hr Sodium Chloride (Normal Saline) Confirm Administered Dose 250 mls @ as directed .ROUTE .STK-MED ONE Stop: 01/18/18 13:05 Last Admin: 01/18/18 18:03 Dose: 50 mls/hr Sodium Chloride (Normal Saline) 250 mls @ 50 mls/hr IV ASDIRECTED [facility] Lidocaine HCl (Xylocaine 2%) 0 mg IVPUSH ASDIRECTED PRN PRN Reason: Heart Lidocaine HCl (Xylocaine 2%) 0 mg IVPUSH ASDIRECTED PRN PRN Reason: Heart Loratadine (Claritin) 10 mg PO DAILY [facility] Last Admin: 01/20/18 11:09 Dose: Not Given Lorazepam (Ativan) 0.5 mg PO QID PRN PRN Reason: Anxiety Last Admin: 01/19/18 19:44 Dose: 0.5 mg Lorazepam (Ativan) 0.5 mg PO ONETIME ONE Stop: 01/20/18 00:33 Last Admin: 01/20/18 00:51 Dose: 0.5 mg Lorazepam (Ativan) 0.5 - 1 mg IVPUSH Q6H PRN PRN Reason: Anxiety Melatonin (Melatonin) 3 mg PO BEDTIME [facility] Last Admin: 01/19/18 21:35 Dose: 3 mg Methylprednisolone Sodium Succinate (Solu-Medrol) 125 mg IVPUSH ONETIME ONE Stop: 01/16/18 03:23 Last Admin: 01/16/18 03:29 Dose: 125 mg Methylprednisolone Sodium Succinate (Solu-Medrol) 80 mg IVPUSH Q8H [facility] Last Admin: 01/17/18 04:39 Dose: 80 mg Metoprolol Tartrate (Lopressor) 25 mg PO ONETIME ONE Stop: 01/20/18 02:29 Last Admin: 01/20/18 02:49 Dose: 25 mg Nicotine (Habitrol) 14 mg TRDERM DAILY [facility] Last Admin: 01/17/18 09:04 Dose: Not Given Nicotine Polacrilex (Nicorelief) 4 mg CHEW Q4H PRN PRN Reason: Other Nicotine Polacrilex (Nicorelief) 4 mg PO Q2H PRN PRN Reason: Other Last Admin: 01/17/18 10:10 Dose: 4 mg Nitroglycerin (Nitrostat) 0.4 mg SL ASDIRECTED PRN PRN Reason: Heart Nitroglycerin (Nitrostat) 0.4 mg SL ASDIRECTED PRN PRN Reason: Heart Non-Formulary Medication (Xx Nicorette Lozenges) 4 mg PO Q2H [facility] Last Admin: 01/16/18 21:52 Dose: Not Given Nf: Nicotine Polacrilex 2 Mg Lozenges 1 each PO Q2H PRN PRN Reason: Other Olanzapine (Zyprexa) 5 mg PO DAILY [facility] Last Admin: 01/20/18 11:09 Dose: Not Given Pantoprazole Sodium (Protonix Iv) 40 mg IVPUSH DAILY [facility] Last Admin: 01/19/18 09:04 Dose: 40 mg Pantoprazole Sodium (Protonix) 40 mg PO ONETIME ONE Stop: 01/20/18 07:01 Last Admin: 01/20/18 11:09 Dose: Not Given Prednisone (Prednisone) 40 mg PO 1200 [facility] Last Admin: 01/18/18 13:17 Dose: 40 mg Prednisone (Prednisone) 40 mg PO 1800 [facility] Last Admin: 01/18/18 18:02 Dose: 40 mg Prednisone (Prednisone) 60 mg PO WITHBREAKFAST [facility] Stop: 01/19/18 12:00 Last Admin: 01/19/18 11:00 Dose: 60 mg Prednisone (Prednisone) 40 mg PO WITHBREAKFAST [facility] Last Admin: 01/20/18 11:09 Dose: Not Given Senna/Docusate Sodium (Senna Plus) 1 tab PO BID [facility] Last Admin: 01/20/18 11:09 Dose: Not Given Sodium Chloride (Syrex Flush) 5 ml FLUSH Q8HR PRN PRN Reason: Keep Vein Open Stop: 01/16/18 00:02 Sodium Chloride (Syrex Flush) 5 ml FLUSH Q8HR PRN PRN Reason: Keep Vein Open Triamcinolone Acetonide (Triamcinolone Acetonide 0.1% Crm) 1 gm TOP BID [facility] Last Admin: 01/19/18 11:18 Dose: Not Given Triamcinolone Acetonide (Triamcinolone Acetonide 0.1% Crm) 1 gm TOP BID PRN PRN Reason: contact dermatitis Vancomycin HCl (Pharmacy To Dose - Vancomycin) 0 dose .XX ASDIRECTED ANGELA - Exam Quality Assessment: Reports: Supplemental Oxygen (8 liters high flow nasal cannula). Denies: Urine Catheter, DVT Prophylaxis General: Reports: Alert, Oriented, Cooperative, No Acute Distress Lungs: Reports: Normal Respiratory Effort, Decreased Breath Sounds (throughout) , Wheezing (expiratory wheezes to upper lobes) Cardiovascular: Reports: Regular Rhythm, No Murmurs, Tachycardia (100-110s) GI/Abdominal Exam: Normal Bowel Sounds, Soft, Non-Tender, No Distention Extremities: Pedal Edema (non-pitting 1+ edema to BLE and BUE) Skin: Reports: Warm, Dry Neurological: Reports: Normal Speech, Other (Alert and oriented x 3) Psy/Mental Status: Reports: Alert, Normal Affect, Normal Mood
[2018-01-21] MEDS ORDERED: Ondansetron 4 MG Tab.DIS PO SCH (15:40)
== END 2018-01-21 15:45 | disposition hospice, home (50) | DRG 720 ==
LOC: KA.ED 21:40 → KA.MS 22:52
PROVIDERS: ADMIT Physician Assistant Medical; ATTEND Family Medicine
PROC: 5A09357 Assistance with Respiratory Ventilation, Less than 24 Consecutive Hours, Continuous Positive Airway Pressure (ICD-10-PCS; principal; 2018-01-16)
PROC: 039Y3ZZ Drainage of Upper Artery, Percutaneous Approach (ICD-10-PCS; 2018-01-16)
PROC: 5A09457 Assistance with Respiratory Ventilation, 24-96 Consecutive Hours, Continuous Positive Airway Pressure (ICD-10-PCS; 2018-01-18)
DX: A41.9 Sepsis, unspecified organism (principal); J96.21 Acute and chronic respiratory failure with hypoxia; J96.22 Acute and chronic respiratory failure with hypercapnia; I21.4 Non-ST elevation (NSTEMI) myocardial infarction; E87.2 Acidosis; J18.1 Lobar pneumonia, unspecified organism; Z99.81 Dependence on supplemental oxygen; C78.7 Secondary malignant neoplasm of liver and intrahepatic bile duct; C78.00 Secondary malignant neoplasm of unspecified lung; F05 Delirium due to known physiological condition; C77.9 Secondary and unspecified malignant neoplasm of lymph node, unspecified; C79.51 Secondary malignant neoplasm of bone; E87.70 Fluid overload, unspecified; D72.0 Genetic anomalies of leukocytes; C21.0 Malignant neoplasm of anus, unspecified; B37.0 Candidal stomatitis; I10 Essential (primary) hypertension; F41.9 Anxiety disorder, unspecified; F32.9 Major depressive disorder, single episode, unspecified; E86.0 Dehydration; Z88.6 Allergy status to analgesic agent; Z79.891 Long term (current) use of opiate analgesic; Z90.49 Acquired absence of other specified parts of digestive tract; Z79.899 Other long term (current) drug therapy; Z91.018 Allergy to other foods; H54.7 Unspecified visual loss; F17.200 Nicotine dependence, unspecified, uncomplicated; Z92.21 Personal history of antineoplastic chemotherapy; Z92.3 Personal history of irradiation; N39.0 Urinary tract infection, site not specified; K59.00 Constipation, unspecified; R65.20 Severe sepsis without septic shock; T38.0X5A Adverse effect of glucocorticoids and synthetic analogues, initial encounter; D53.9 Nutritional anemia, unspecified; G47.00 Insomnia, unspecified; Z66 Do not resuscitate; Z51.5 Encounter for palliative care
CPT/HCPCS: 36415; 36600; 71045; 71046; 80048; 80053; 81001; 82607; 82728; 82746; 82803; 83010; 83540; 83550; 83605; 84484; 85025; 85045; 87040; 87070; 87086; 87205; 93005; 94640; 94660; 99285; A9270-GY; C9113; J1170; J1650; J1940; J2405; J2543; J2930; J3370; J3480; J7030; J7050; J7620-GY